=== PATIENT | female | born 1950 | race Caucasian/White ===

== ENCOUNTER 2024-03-09 17:57 | Emergency (ER) | payer OTHER, SELFPAY ==
[2024-03-09] VITALS (7 sets, daily range): BP systolic 140–239; BP diastolic 76–124; PULSE 69–87; RESP 18–19; TEMP 36.7–36.8; O2SAT 97–99; BMI 35.4; BMI 23.9
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
--- NOTE | 2024-03-09 18:02 | XR_ITS ---
Examination: CT brain head without contrast. 2-D sagittal coronal reconstructions Date and time of exam:March 09, 2024 1721 hrs. Indications: Headaches beginning 2 days ago CTDI: vol (mGy):49 DLP: (mGycm):1001 Technique: Multiple CT axial sections of the brain have been obtained, 5 mm slice thickness. Contrast has not been administered. 2-D sagittal, coronal reconstructions have been obtained Low dose protocols were performed. One or more of the following dose reduction techniques were used; automated exposure control, adjustment of the mA and/or KV according to patient size, use of iterative reconstruction technique. Findings: No significant ventricular enlargement. Intra-axial or extra-axial hemorrhage density is not seen. No mass effect or midline shift Basal cisterns are not remarkable. Fourth ventricle is midline. Cranial vault intact. Impression: Negative for acute hemorrhage, mass effect or midline shift Advise clinical correlation and follow-up accordingly
--- NOTE | 2024-03-09 18:02 | XR_ITS ---
Examination: CT cervical spine without contrast 2-D sagittal reconstructions 2-D coronal reconstructions 3-D reconstructions. Exam date and time:March 09, 2024 1921 hrs. Indications: Patient fell 2 days ago with injury to the neck, neck pain CTDI:vol (mGy) 7.31 DLP: (mGycm) 141 Technique: Multiple 2 mm axial sections of the cervical spine have been obtained. The coronal and sagittal reconstructions have been obtained. 3-D reconstructions have been obtained. Low dose protocols were performed. One or more of the following dose reduction techniques were used; automated exposure control, adjustment of the mA and/or KV according to patient size, use of iterative reconstruction technique. Findings: Axial sections demonstrate intact base of the skull. C1 exhibit satisfactory relationship to the odontoid. No acute cervical vertebral body fracture seen. Alignment posterior spinous processes satisfactory. Impression: No acute cervical fracture.
--- NOTE | 2024-03-09 18:04 | PD.EDADULT ---
ED General RME/HPI General Chief complaint: Fall Stated complaint: FALL Time Seen by Provider: 03/09/24 18:02 Arrival date/time: 03/09/24 17:57 RME / HPI RME / HPI narrative: 73-year-old female patient came in for evaluation after a fall. Patient was walking and tripped on something and fell sustaining skin tear to the right forearm, severity moderate, and posterior neck pain. Patient denies any LOC. Denies any hip pain denies any chest pain back pain or other complaints. Patient is not taking a blood thinner. Related Data Home Medications ?Medication ?Instructions ?Recorded ?Confirmed Levothyroxine * (SYNTHROID *) 25 mcg PO QDAY #0 tabs 07/11/14 alprazolam 0.25 mg tablet 0.25 mg PO BID #0 tabs 07/11/14 lisinopril 5 mg tablet 5 mg PO QDAY #0 tabs 07/11/14 metformin 850 mg tablet 850 mg PO QDAC #0 tabs 07/11/14 (Glucophage) simvastatin 5 mg tablet (Zocor) 5 mg PO HS #0 tabs 07/11/14 triazolam 0.125 mg tablet 0.125 mg PO HS #0 tabs 07/11/14 Previous Rx's ?Medication ?Instructions ?Recorded Hydrocodone/Acetaminophen * (NORCO 1 tab PO Q6H PRN PAIN #14 tabs 07/11/14 5/325 *) Sulfamethoxazole/Trimethoprim DS * 1 tab PO BID 7 days #0 tabs 07/11/14 (BACTRIM DS *) tramadol 50 mg tablet 50 mg PO Q6H #30 tabs 04/18/18 Allergies Allergy/AdvReac Type Severity Reaction Status Date / Time No Known Allergies Allergy Unverified 04/18/18 13:18 Review of Systems Review of Systems Narrative Review of Systems: Review of system reviewed and within normal limits except mentioned in HPI ED Exam Narrative Physical exam: VITAL SIGNS: Reviewed. GENERAL APPEARANCE: Alert and interactive, follows commands, no acute distress, HEAD AND FACE: Non-traumatic. ENT: PERRL, pink conjunctivitis, eyelid no trauma, Mucous membrane moist. NECK: Supple, posterior neck tenderness, no nuchal rigidity. CHEST: No tenderness, no crepitus, no paradoxical movement, no retractions. LUNGS: Clear, well ventilated, symmetric, no rales, no wheezing, no ronchi, no stridor, good breath sounds bilaterally. HEART: Regular rate, regular rhythm, no murmur, no gallops. ABDOMEN: Soft, positive bowel sounds, nondistended, no guarding, nontender, no rebound, no masses, RECTAL: Deferred. GENITAL: Deferred. NEUROLOGICAL: Gross motor function intact sensory function intact, Appropriate for age. MUSCULOSKELETAL: low back nontender, full range of motion. EXTREMITIES: +5 cm skin tear to the right forearm, dorsal aspect with tenderness no deformity, full range of motion. SKIN: Color pink, dry, no rash, no lacerations, no abrasions, no contusions. LYMPHATICS: Deferred. Course Quality Measures none Orders Category Date Time Status CT cervical spine wo con Stat Exams 03/09/24 18:[address] head/brain wo con Stat Exams 03/09/24 18:02 Completed XR forearm RT 2V Stat Exams 03/09/24 18:02 Completed XR shoulder RT 1V Stat Exams 03/09/24 20:04 Completed Acetaminophen Tab [Tylenol ES Tab] Med 03/09/24 18:02 Discontinued 1,000 mg PO X1 ONE Labetalol IV [Trandate IV] Med 03/09/24 19:31 Discontinued 20 mg IVP X1 ONE Morphine Inj Med 03/09/24 19:31 Discontinued 4 mg IVP X1 ONE Ondansetron Inj [Zofran Inj] Med 03/09/24 19:31 Discontinued 4 mg IV X1 ONE Sodium Chloride 0.9% 250 ml [Ns] 250 ml Med 03/09/24 20:04 Discontinued IV 999 mls/hr Tet,Diphth,Pertuss(Acell)-Tdap [Boostrix Vacc] Med 03/09/24 18:02 Discontinued 0.5 ml IMI .ONCE ONE Vital Signs Vital signs: Vital Signs Pulse Rate 87 03/09/24 19:01 Respiratory Rate 18 03/09/24 19:01 Blood Pressure 239/124 H 03/09/24 19:01 Pulse Oximetry (%) 97 03/09/24 19:01 Oxygen Delivery Method Room Air 03/09/24 19:01 [facility] [place] Patient data External records reviewed:: None Clinical information provided by:: patient Social determinants that could affect healthcare access:: none Patient has the following chronic illnesses:: Dementia, hypertension How is presenting disease/condition affected by chronic disease/condition?: exacerbated by Evaluation data The following diagnostics were reviewed and interpreted by me:: radiology exam(s) Lab and/or radiology exams considered but not ordered:: None Interpretation Summary: X-ray of the forearm came back unremarkable x-ray of the shoulder came back unremarkable. CT scan of the cervical spine also came back unremarkable CT scan of the head also came back unremarkable results discussed with the family. Medications Medications considered but not ordered:: None Medication administrations:: Medication Administration History Discontinued Medications Acetaminophen (Acetaminophen 500 Mg Tablet) 1,000 mg PO X1 ONE Stop: 03/09/24 18:03 Last Admin: 03/09/24 19:48 Dose: Not Given Documented By: EE Non-Admin Reason: Discontinued Diphtheria/Tetanus/Acell Pertussis (Diphth,Pertuss(Acell),Tet Vac 0.5 Ml Vial) 0.5 ml IMi .ONCE ONE Stop: 03/09/24 18:03 Last Admin: 03/09/24 19:47 Dose: 0.5 ml Documented By: FLY Sodium Chloride (Ns) 250 mls @ 999 mls/hr IV .Q16M ONE Stop: 03/09/24 20:19 Labetalol HCl (Labetalol Inj 5 Mg/Ml Vial 20 Ml) 20 mg IVP X1 ONE Stop: 03/09/24 19:32 Last Admin: 03/09/24 19:46 Dose: 20 mg Documented By: EE Morphine Sulfate (Morphine Sulf Inj 10 Mg/Ml Vial) 4 mg IVP X1 ONE Stop: 03/09/24 19:32 Last Admin: 03/09/24 19:47 Dose: 4 mg Documented By: EE Ondansetron HCl (Ondansetron Inj 2 Mg/Ml Inj 2 Ml) 4 mg IV X1 ONE; Protocol Stop: 03/09/24 19:32 Last Admin: 03/09/24 19:58 Dose: 4 mg Documented By: EE Labetalol, Zofran, and morphine. Patient also received Boostrix Consultations Consultation(s) initiated? (list below): No Consultation #1 (Physician, Specialty, Details): None Diagnosis Differential Diagnosis ED Complaint MDM: Skin tear, fall, intracranial bleed, neck fracture Most likely diagnosis given after review of the tests above:: Forearm skin tear, fall Admission Indicated Admission indicated?: not indicated Explain why admission is indicated or not indicated:: Stable Admission Request Was there a request for admission?: No Disposition Plan Disposition Plan: Discharge Discharge Attestation Discharge Attestation: The patient and all family members were given an opportunity to ask questions and understood the discharge instructions. Discharge instructions specifically effects, indications for sooner follow up or return to the emergency department, and the expected course of current diagnosis. Patient condition: Stable Medical Decision Making MDM Narrative MDM Narrative: 73-year-old female patient came in for evaluation after a fall. Patient was walking and tripped on something and fell sustaining skin tear to the right forearm, severity moderate, and posterior neck pain. Patient denies any LOC. Denies any hip pain denies any chest pain back pain or other complaints. Patient is not taking a blood thinner. Skin tear cleaned with NS, and sterile strip applied by me, well approximation of the skin tear was achieved. Sterile dressing applied. CT scan of the head came back unremarkable CT scan of the neck came back unremarkable x-ray of the shoulder and forearm also came back normal. Patient received Tdap, morphine, and Zofran Differential Diagnosis Differential Diagnosis: Skin tear, fall, intracranial bleed, neck fracture Discharge Plan Plan Patient Disposition: HOME (Self Care) Disposition Comment: Stable Prescriptions/Referrals Prescriptions/Med Rec: No Action triazolam 0.125 MG tablet 0.125 mg PO HS Qty: 0 metformin [Glucophage] 850 MG tablet 850 mg PO QDAC Qty: 0 alprazolam 0.25 MG tablet 0.25 mg PO BID Qty: 0 simvastatin [Zocor] 5 MG tablet 5 mg PO HS Qty: 0 lisinopril 5 MG tablet 5 mg PO QDAY Qty: 0 Levothyroxine * (SYNTHROID *) 25 MCG tablet 25 mcg PO QDAY Qty: 0 Hydrocodone/Acetaminophen * (NORCO 5/325 *) 1 TAB tablet 1 tab PO Q6H PRN (Reason: PAIN) Qty: 14 0RF Sulfamethoxazole/Trimethoprim DS * (BACTRIM DS *) 1 TAB tablet 1 tab PO BID 7 Days Qty: 0 0RF tramadol 50 mg tablet 50 mg PO Q6H Qty: 30 0RF Referrals: Dante Brewster MD [Primary Care Provider] - In 1 week Problem List Clinical Impression: Skin tear of right forearm without complication, Fall Patient/Caregiver Discharge Instructions Discharge Activity: activity as tolerated Education Materials: ED Laceration: All Closures Additional Instructions: Thank you for the opportunity for serving you today. You are stable for discharged . You are advised to: Follow-up with your PCP in 1 to 2 days Return to ED for worsening of symptoms Increase oral fluids Do not remove the sterile strip until you follow-up at least 7 days, you can only change the top dressing only. As needed every 2 days You may give Tylenol as needed for pain Print Language: Khmer Stand Alone Forms: Varsha Award Info., Patient Portal Info Letter PA/ERIC Supervising Physician PA/ERIC Supervising Physician: MD snehal
--- NOTE | 2024-03-09 19:30 | PC.NURSE ---
PROVIDER ROMEO INFORMED OF PT'S BP 239/124 HR:87. NEW ORDERS RECEIVED.
[2024-03-09] MEDS: LABETALOL INJ 5 MG/ML VIAL 20 ML 20 MG IVP (19:46)
[2024-03-09] MEDS: DIPHTH,PERTUSS(ACELL),TET VAC 0.5 ML VIAL IMi (19:47)
[2024-03-09] MEDS: MORPHINE SULF INJ 10 MG/ML VIAL 4 MG IVP (19:47)
[2024-03-09] MEDS: ONDANSETRON INJ 2 MG/ML INJ 2 ML 4 MG IV (19:58)
--- NOTE | 2024-03-09 20:04 | XR_ITS ---
Examination: Right shoulder single view Technique: AP internal rotation right shoulder single view Exam date and time: March 09, 20242024 hrs. Indications: Onset right shoulder pain today. Findings: Significant osteopenia Moderate narrowing glenohumeral joint No AC joint separation The osseous structures are intact Impression: Moderate narrowing glenohumeral joint
== END 2024-03-09 22:48 | disposition home or self-care (01) ==
PROVIDERS: Emergency Provider Emergency Medicine; PCP Family Medicine
DX: S51.811A Laceration without foreign body of right forearm, initial encounter (principal); W18.09XA Striking against other object with subsequent fall, initial encounter; S49.91XA Unspecified injury of right shoulder and upper arm, initial encounter; S09.90XA Unspecified injury of head, initial encounter; S19.9XXA Unspecified injury of neck, initial encounter; Z23 Encounter for immunization; Y93.01 Activity, walking, marching and hiking
CPT/HCPCS: 70450; 72125; 73020; 73090; 90471; 90715; 96374; 96375; 99284; J2270; J2405; J3490; J1920

== ENCOUNTER → 2024-08-23 | Outpatient (CLI) | payer OTHER, SELFPAY ==
[2024-08-23 13:34] LABS: Collection Type, Urine Clean Catch
[2024-08-23 13:45] LABS: Basophils # (Auto) 0.1 Thou/mm3 (0.0-0.2); Basophils % (Auto) 1 % (0-2.5); Eosinophils # (Auto) 0.2 Thou/mm3 (0.0-0.5); Eosinophils % (Auto) 2 % (0-10); Hematocrit 41.6 % (36.0-46.0); Hemoglobin 13.4 g/dL (12.0-16.0); Immature Granulocytes % (Auto) 0 % (0-0); Immature Granulocytes Auto 0.03 Thou/mm3 (0.00-0.00); Lymphocytes # (Auto) 1.7 Thou/mm3 (1.0-4.8); Lymphocytes % (Auto) 22 % (10-50); Mean Corpuscular HGB Conc 32.2 g/dl (31.0-37.0); Mean Corpuscular Hemoglobin 28.5 pg (25.0-35.0); Mean Corpuscular Volume 88 fL (80-100); Monocytes # (Auto) 0.6 Thou/mm3 (0.0-0.8); Monocytes % (Auto) 7 % (0-12); Neutrophils # (Auto) 5.4 Thou/mm3 (1.8-7.7); Neutrophils % (Auto) 67 % (37-80); Nucleated Red Blood Cell % 0 /100 WBC (0); Platelet Count 343 Thou/mm3 (140-440); RDW Standard Deviation 43.8 fL (36.4-46.3); Red Blood Count 4.71 Miln/mm3 (4.00-5.20)
[2024-08-23 13:47] LABS: Bilirubin,Urine Negative (Negative); Blood,Urine Negative (Negative); Clarity,Urine Clear (Clear/Hazy); Color,Urine Lt-Yellow (Lt Yel-Yel); Culture Indicated,Urine Not Indicated; Glucose, Urine Negative (Negative); Ketones,Urine Trace (Negative); Leukocyte Esterase,Urine Negative (Negative); Nitrite,Urine Negative (Negative); PH,Urine 6.5 (5.0-7.0); Protein,Urine Trace (Neg - Trace); RBC,Urine 5 /hpf (0-3); Specific Gravity,Urine 1.019 (1.001-1.035); Squamous Epithelial Cell,Urine 2 /hpf (0-5); Urobilinogen,Urine Negative mg/dL (0.0-1.0); WBC,Urine 2 /hpf (0-5)
[2024-08-23 13:55] LABS: Glucose Estimated Average 108 mg/dL (80-131); Hemoglobin A1C 5.4 % Hgb (4.8-6.0)
[2024-08-23 14:14] LABS: Alanine Aminotransferase 12 U/L (10-49); Albumin, Serum 4.3 gm/dL (3.4-4.8); Albumin/Globulin Ratio 1.7 (1.2-2.2); Alkaline Phosphatase 118 U/L (46-116); Anion Gap 9 (7-16); BUN/Creatinine Ratio 11 Ratio (12-20); Bilirubin,Total 0.5 mg/dL (0.3-1.2); Blood Urea Nitrogen 13 mg/dL (9-23); Calcium 9.3 mg/dL (8.3-10.6); Calcium (Corrected) 9.3 mg/dL (8.5-10.1); Carbon Dioxide 28.6 mMol/L (20.0-31.0); Chloride 108 mMol/L (98-107); Creatinine (Component) 1.2 mg/dL (0.6-1.3); Globulin 2.5 gm/dL (2.3-3.5); Glucose 91 mg/dL (74-106); Osmolality,Calculated 290 (275-295); Potassium 3.8 mMol/L (3.4-5.1); Sodium 146 mMol/L (136-145); Thyroid Stimulating Hormone 0.65 uIU/mL (0.55-4.78); Total Protein 6.8 gm/dL (5.7-8.2); eGFR 48 See Note
[2024-08-23 14:16] LABS: Vitamin B12 532 pg/mL (211-911); Vitamin D 25 Hydroxy Total 33.8 ng/mL (7.3-40.2)
== END | disposition home or self-care (01) ==
PROVIDERS: PCP Internal Medicine; Referring Provider Internal Medicine; Visit Provider Internal Medicine
DX: I12.9 Hypertensive chronic kidney disease with stage 1 through stage 4 chronic kidney disease, or unspecified chronic kidney disease (principal); N18.9 Chronic kidney disease, unspecified; G31.84 Mild cognitive impairment of uncertain or unknown etiology; E78.5 Hyperlipidemia, unspecified; M85.80 Other specified disorders of bone density and structure, unspecified site
CPT/HCPCS: 36415; 80053; 81001; 82306; 82607; 83036; 84443; 85025

== ENCOUNTER → 2024-10-12 | Outpatient (CLI) | payer OTHER, SELFPAY ==
--- NOTE | 2024-10-12 | XR_ITS ---
Examination: MRI brain without intravenous contrast. Date and time of exam: October 12, 2024 1051 hours INDICATIONS: Dizziness episodes with increasing memory loss over the last year Technique: Multiple axial and sagittal images of the brain obtained. Siemens high-resolution 1.5 Georgie short bore scanners utilized. Sagittal sections, T1-weighted, TR 500, TE 14, are performed. Axial sections proton-density and T2-weighted have been obtained. Inversion recovery axial images, TR 9, 260, TE 111, TI 2500. Diffusion weighted images, axial sections, TR 4800, TE 128, B value 1000 Axial sections, ADC map, TR 4800, TE 128 Findings: Enlargement of the sella turcica is not present. The optic chiasm and infundibular are not remarkable. Prepontine and interpeduncular cisterns are not enlarged. There is no localized enlargement of the medulla or katy. Fourth ventricle and cerebellar tonsils appear normal in position. No subacute area of hemorrhage density is seen. Mass in the cerebellopontine angle region is not evident. Globes symmetrical. Orbital musculature including medial lateral rectus muscles do not exhibit abnormality. Diffusion-weighted images demonstrate no focus of restricted diffusion. Increased white matter signal prominent Mass effect upon the ventricular system is not identified. Impression: Negative for acute hemorrhage mass effect or midline shift No acute infarct Prominent chronic microvascular white matter change
== END | disposition home or self-care (01) ==
LOC: SMRI 10:24
PROVIDERS: PCP Internal Medicine; Referring Provider Internal Medicine; Visit Provider Internal Medicine
DX: R90.82 White matter disease, unspecified (principal)
CPT/HCPCS: 70551

== ENCOUNTER → 2024-10-20 | Outpatient (CLI) | payer OTHER, SELFPAY ==
[2024-10-20 12:04] LABS: Basophils # (Auto) 0.1 Thou/mm3 (0.0-0.2); Basophils % (Auto) 1 % (0-2.5); Eosinophils # (Auto) 0.3 Thou/mm3 (0.0-0.5); Eosinophils % (Auto) 5 % (0-10); Hematocrit 41.9 % (36.0-46.0); Hemoglobin 13.0 g/dL (12.0-16.0); Immature Granulocytes Auto 0.02 Thou/mm3 (0.00-0.00); Lymphocytes # (Auto) 1.5 Thou/mm3 (1.0-4.8); Lymphocytes % (Auto) 22 % (10-50); Mean Corpuscular HGB Conc 31.0 g/dl (31.0-37.0); Mean Corpuscular Hemoglobin 28.4 pg (25.0-35.0); Mean Corpuscular Volume 92 fL (80-100); Monocytes # (Auto) 0.5 Thou/mm3 (0.0-0.8); Monocytes % (Auto) 8 % (0-12); Neutrophils # (Auto) 4.5 Thou/mm3 (1.8-7.7); Neutrophils % (Auto) 64 % (37-80); Nucleated Red Blood Cell # 0.00 Thou/mm3 (0.00-0.00); Nucleated Red Blood Cell % 0 /100 WBC (0); Platelet Count 341 Thou/mm3 (140-440); RDW Standard Deviation 47.3 fL (36.4-46.3); Red Blood Count 4.58 Miln/mm3 (4.00-5.20); White Blood Count 6.9 Thou/mm3 (3.6-11.0)
[2024-10-20 12:21] LABS: B-Type Natriuretic Peptide 155 pg/mL (0-100)
[2024-10-20 12:23] LABS: Alanine Aminotransferase 10 U/L (10-49); Albumin, Serum 4.2 gm/dL (3.4-4.8); Albumin/Globulin Ratio 1.8 (1.2-2.2); Alkaline Phosphatase 122 U/L (46-116); Anion Gap 9 (7-16); Aspartate Amino Transferase 24 U/L (0-34); BUN/Creatinine Ratio 15 Ratio (12-20); Bilirubin,Total 0.3 mg/dL (0.3-1.2); Blood Urea Nitrogen 21 mg/dL (9-23); Calcium 9.4 mg/dL (8.3-10.6); Calcium (Corrected) 9.4 mg/dL (8.5-10.1); Carbon Dioxide 29.3 mMol/L (20.0-31.0); Chloride 106 mMol/L (98-107); Creatinine (Component) 1.4 mg/dL (0.6-1.3); Globulin 2.3 gm/dL (2.3-3.5); Glucose 158 mg/dL (74-106); Osmolality,Calculated 292 (275-295); Potassium 4.5 mMol/L (3.4-5.1); Sodium 144 mMol/L (136-145); Total Protein 6.5 gm/dL (5.7-8.2); eGFR 39 See Note
== END | disposition home or self-care (01) ==
LOC: COPL 11:28
PROVIDERS: PCP Internal Medicine; Referring Provider Internal Medicine; Visit Provider Internal Medicine
DX: R60.9 Edema, unspecified (principal); N18.31 Chronic kidney disease, stage 3a
CPT/HCPCS: 36415; 80053; 83880; 85025

== ENCOUNTER 2024-10-31 18:22 | Emergency (ER) | payer OTHER, SELFPAY ==
[2024-10-31 18:52] VITALS: BP 159/83; PULSE 63; RESP 18; TEMP 36.8; O2SAT 97; BMI 32.3
--- NOTE | 2024-10-31 19:02 | EKG_ITS ---
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
--- NOTE | 2024-10-31 19:02 | XR_ITS ---
Examination: CT cervical spine without contrast 2-D sagittal reconstructions 2-D coronal reconstructions 3-D reconstructions. Exam date and time:October 31, 2024 1921 hours INDICATIONS: Ground-level fall today with injury to the neck neck pain CTDI:vol (mGy) 14 DLP: (mGycm) 307 Technique: Multiple 2 mm axial sections of the cervical spine have been obtained. The coronal and sagittal reconstructions have been obtained. 3-D reconstructions have been obtained. Low dose protocols were performed. One or more of the following dose reduction techniques were used; automated exposure control, adjustment of the mA and/or KV according to patient size, use of iterative reconstruction technique. Findings: Axial sections demonstrate intact base of the skull. C1 exhibit satisfactory relationship to the odontoid. No acute cervical vertebral body fracture seen. Alignment posterior spinous processes satisfactory. Chronic osteoporotic compression T5 Impression: No acute cervical fracture. Very heavy carotid vascular calcification, consider correlation with carotid Doppler sonography follow-up
--- NOTE | 2024-10-31 19:02 | XR_ITS ---
Examination: CT maxillofacial, without intravenous contrast. 2-D sagittal reconstructions. 3-D reconstructions. Date and time of exam:October 31, 2024 1921 hours INDICATIONS: Patient fell today with injury to the face, facial pain. CTDI: vol (mGy):17.7. DLP: (mGycm):323. Technique: Multiple axial images of maxillofacial region, 3.0 mm slice thickness. 2-D sagittal and coronal reconstructions. 3-D reconstructions. Low dose protocols were performed. One or more of the following dose reduction techniques were used; automated exposure control, adjustment of the mA and/or KV according to patient size, use of iterative reconstruction technique. Findings: Frontal bone frontal sinuses intact Orbital rims intact. No nasal bone fracture. No depression zygomatic arches. Pterygoid plates maxilla and mandible is intact IMPRESSION: No acute facial fracture.
--- NOTE | 2024-10-31 19:02 | XR_ITS ---
Examination: Tibia-Fibula, right , 2 views Technique: Tibia-fibula AP lateral 2 views Date and time of exam: October 31, 2024, 1959 hours. INDICATIONS: Patient fell today with injury to the lower leg, lower leg pain. FINDINGS: No acute fracture. No dislocation. No foreign body Poor definition of the cortex medial malleolus IMPRESSION: No acute fracture. There is poor definition of the cortex of the medial malleolus, clinical correlation is advised, consider follow-up coned ankle films
--- NOTE | 2024-10-31 19:02 | XR_ITS ---
Examination: Duplex scan of the lower extremity, unilateral right Date and time of exam: October 31, 2024 202 hours INDICATIONS: Right leg redness swelling and pain today Technique: Duplex scan of the extremity veins using B-mode/grayscale imaging and Doppler spectral analysis and color flow Attention is directed to internal echogenicity, compression and augmentation involving these veins, color flow assessment, spectral analysis Findings: Major deep venous structures in the extremity demonstrate normal course and caliber. There is no evidence of deep vein thrombosis. Noncompressible distal superficial femoral vein but no thrombus Normal color flow and spectral analysis Impression: Limited study, no DVT demonstrated
--- NOTE | 2024-10-31 19:02 | XR_ITS ---
Examination: CT right knee, without contrast. 2-D sagittal reconstructions. 2-D coronal reconstructions. 3-D reconstructions. Date and time of exam:October 31, 2024, 1927 hours. INDICATIONS: Injury to the knee today after falling, knee pain CTDI: vol (mGy):14.8 DLP: (mGycm):428 Technique: Multiple 1.25 mm axial sections of the left knee without intravenous contrast. have been obtained. 2-D sagittal and coronal reconstructions have been obtained. 3-D reconstructions have been obtained. Low dose protocols were performed. One or more of the following dose reduction techniques were used; automated exposure control, adjustment of the mA and/or KV according to patient size, use of iterative reconstruction technique. Findings: Severe osteopenia. Distal femur femoral condyles intact Advanced osteoarthritis patellofemoral joint Patella is intact with no patellar dislocation Tibial plateau proximal tibia fibular head and neck intact Severe narrowing medial joint space Edema in the subcutaneous tissue Small knee effusion IMPRESSION: No acute fracture Significant leg edema
--- NOTE | 2024-10-31 19:02 | XR_ITS ---
Examination: Forearm, left, 2 views. Technique: Forearm, AP, lateral 2 views Date and time of exam: October 31, 2024, 1947 hours INDICATIONS: Patient fell yesterday with injury deformed, forearm pain. FINDINGS: No acute fracture. No dislocation No foreign body IMPRESSION: No acute fracture
--- NOTE | 2024-10-31 19:02 | XR_ITS ---
Examination: Humerus 2 views right Technique: Humerus, AP lateral 2 views Date and time of exam: October 31, 2024, 1947 hours INDICATIONS: Patient fell yesterday with injury to the arm, arm pain. FINDINGS: No shoulder fracture or dislocation. Shaft of the humerus is intact IMPRESSION: No fracture
--- NOTE | 2024-10-31 19:02 | XR_ITS ---
Examination: CT brain head without contrast. 2-D sagittal coronal reconstructions Date and time of exam:October 31, 2024, 1921 hours INDICATIONS: Ground-level fall today with injury to the head, head pain COMPARISON: March 09, 2024 CTDI: vol (mGy):46.4 DLP: (mGycm):958 Technique: Multiple CT axial sections of the brain have been obtained, 5 mm slice thickness. Contrast has not been administered. 2-D sagittal, coronal reconstructions have been obtained Low dose protocols were performed. One or more of the following dose reduction techniques were used; automated exposure control, adjustment of the mA and/or KV according to patient size, use of iterative reconstruction technique. Findings: No significant ventricular enlargement. Intra-axial or extra-axial hemorrhage density is not seen. No mass effect or midline shift Basal cisterns are not remarkable. Fourth ventricle is midline. Cranial vault intact. Impression: Negative for acute hemorrhage, mass effect or midline shift
--- NOTE | 2024-10-31 19:05 | XR_ITS ---
Examination going to be just single view TECHNIQUE: Upright AP chest single view Date and time: October 31, 2024, 1950 hours INDICATIONS: Patient fell yesterday with injury to the chest, chest pain. FINDINGS: Mild prominence left ventricle. No pneumothorax. Old upper left rib fractures. No acute fractures depicted IMPRESSION: No pneumothorax pulmonary contusion or hemothorax
--- NOTE | 2024-10-31 19:46 | PD.EDFALL ---
ED Fall Injury RME/HPI General Chief Complaint: Fall Stated Complaint: Fall, right leg swollen Time Seen by Provider: 10/31/24 19:01 Arrival date/time: 10/31/24 18:22 74F with history of HTN, CKD and likely dementia presents to ED with daughter for 2 unwitnessed falls at residential. Unknown cause. Patient had some bleeding on L forearm and nose that were bandaged. Patient has not had a tetanus shot in the past 5 years. Patient complains of LUE and RLE pain/swelling. Unknown LOC. Patient/daughter deny LOC, AMS, seizures, N/V, and SOB. Patient was given Keflex for possible cellulitis in RLE w/o improvement. Limitations: no limitations Related Data Home Medications ?Medication ?Instructions ?Recorded ?Confirmed Levothyroxine * (SYNTHROID *) 25 mcg PO QDAY #0 tabs 07/11/14 alprazolam 0.25 mg tablet 0.25 mg PO BID #0 tabs 07/11/14 lisinopril 5 mg tablet 5 mg PO QDAY #0 tabs 07/11/14 metformin 850 mg tablet 850 mg PO QDAC #0 tabs 07/11/14 (Glucophage) simvastatin 5 mg tablet (Zocor) 5 mg PO HS #0 tabs 07/11/14 triazolam 0.125 mg tablet 0.125 mg PO HS #0 tabs 07/11/14 Previous Rx's ?Medication ?Instructions ?Recorded Hydrocodone/Acetaminophen * (NORCO 1 tab PO Q6H PRN PAIN #14 tabs 07/11/14 5/325 *) Sulfamethoxazole/Trimethoprim DS * 1 tab PO BID 7 days #0 tabs 07/11/14 (BACTRIM DS *) tramadol 50 mg tablet 50 mg PO Q6H #30 tabs 04/18/18 Allergies Allergy/AdvReac Type Severity Reaction Status Date / Time No Known Allergies Allergy Unverified 04/18/18 13:18 Review of Systems Review of Systems Systems Reviewed: All systems reviewed, normal except as documented Constitutional Constitutional: Reports system reviewed and no additional complaints, except as documented, Denies fever(s) and Denies headache(s) ENT Ears, Nose, Mouth, and Throat: Denies disequilibrium and Denies headache(s) Cardiovascular Cardiovascular: Reports system reviewed and no additional complaints, except as documented, Denies chest pain and Denies dyspnea Respiratory Respiratory: Reports system reviewed and no additional complaints, except as documented, Denies cough and Denies dyspnea Gastrointestinal Gastrointestinal: Reports system reviewed and no additional complaints, except as documented, Denies abdominal pain, Denies nausea and Denies vomiting Musculoskeletal Musculoskeletal: Reports as per HPI and Reports arthralgias Integumentary/Breasts Skin/Breast: Reports as per HPI and Reports skin pain Neurologic Neurologic: Reports system reviewed and no additional complaints, except as documented, Denies confusion, Denies disequilibrium and Denies headache(s) Psychiatric Psychiatric: Denies confusion Past Medical History Past Medical History CARDIAC: Positive Hypertension; Negative Congestive Heart Failure RESPIRATORY: Negative Chronic Obstructive Pulmonary Disease (COPD) GENITOURINARY: Negative Renal Disease MUSCULOSKELETAL: Positive Arthritis ENDOCRINE: Negative Diabetes Mellitus Type 1 or Diabetes Mellitus Type 2 OTHER HISTORY: Positive Blood Transfusions Social History SMOKING STATUS: Never smoker ED Exam General Limitations: Present no limitations General appearance: Present alert and in no apparent distress Expanded Head Exam Head exam physical: Present laceration (healing on nose) Eye Eye exam: Present normal appearance, PERRL and EOMI ENT ENT exam: Present normal exam, normal oropharynx and mucous membranes moist Neck Neck exam: Present normal inspection, full ROM and trachea midline Chest Chest inspection: Present normal inspection and symmetric chest wall rise Respiratory Respiratory exam: Present normal lung sounds bilaterally Cardiovascular Cardiovascular exam: Present regular rate, normal rhythm and normal heart sounds Abdominal Exam Abdominal exam: Present soft and normal bowel sounds Extremities Exam Extremities exam: Present full ROM Expanded Upper Extremity Exam Arm exam: Present full ROM (L), tenderness and ecchymosis Forearm/Wrist exam: Present full ROM, tenderness, abrasion (healing on L) and ecchymosis Expanded Lower Extremity Exam Lower leg exam: Present full ROM (R) and swelling Back Exam Back exam: Present normal inspection and full ROM Neurological Exam Neurological exam: Present alert, oriented X3 and CN II-XII intact Psychiatric Psychiatric exam: Present normal affect and normal mood Skin Skin exam: Present warm, dry, intact and normal color Course Quality Measures none Orders Category Date Time Status EKG (ED ONLY) *Do not use* NOW Care 10/31/24 19:02 Completed Wound Care NOW Care 10/31/24 19:46 Active braxton wrap [Splint / Immobilizer] STAT Care 10/31/24 22:[address] cervical spine wo con Stat Exams 10/31/24 19:[address] facial bones wo con Stat Exams 10/31/24 19:[address] head/brain wo con Stat Exams 10/31/24 19:[address] knee RT wo con Stat Exams 10/31/24 19:02 Completed EKG (ED Only) Stat Exams 10/31/24 19:02 Draft US venous doppler LE RT Stat Exams 10/31/24 19:02 Completed XR chest 1V portable Stat Exams 10/31/24 19:05 Completed XR forearm LT 2V Stat Exams 10/31/24 19:02 Completed XR humerus RT min 2V Stat Exams 10/31/24 19:02 Completed XR tibia fibula RT 2V Stat Exams 10/31/24 19:02 Completed CBC Stat Lab 10/31/24 19:48 Completed CMP [Comprehensive Metabolic Panel] Stat Lab 10/31/24 19:48 Completed INR [Prothrombin Time with INR] Stat Lab 10/31/24 19:48 Completed PTT [Partial Thromboplastin Time] Stat Lab 10/31/24 19:48 Completed Troponin I Stat Lab 10/31/24 19:48 Completed Urinalysis, C/S if Indicated Stat Lab 10/31/24 20:27 Completed TET,DIP/PERT AC (Adult)-Tdap [Boostrix Adult (Tdap) Med 10/31/24 19:46 Discontinued Vacc] 0.5 ml IMI .ONCE ONE Vital Signs Vital signs: Vital Signs Temperature 98.2 F 10/31/24 18:52 Pulse Rate 63 10/31/24 18:52 Respiratory Rate 18 10/31/24 18:52 Blood Pressure 159/83 H 10/31/24 18:52 Pulse Oximetry (%) 97 10/31/24 18:52 Oxygen Delivery Method Room Air 10/31/24 18:52 O2 at 97% on RA and WNLs Fall MDM Narrative MDM Narrative:: 74F with history of HTN, CKD and likely dementia presents to ED with daughter for 2 unwitnessed falls at residential. Unknown cause. Patient had some bleeding on L forearm and nose that were bandaged. Patient has not had a tetanus shot in the past 5 years. Patient complains of LUE and RLE pain/swelling. Unknown LOC. Patient/daughter deny LOC, AMS, seizures, N/V, and SOB. Patient was given Keflex for possible cellulitis in RLE w/o improvement. Physical exam reveals normal pupil response and EOM. Healing lac on nose. No other gross head trauma. Neck/back ROM intact. No midline tenderness. Normal WOB. No chest/ab tenderness. Patient is able to move all 4 extremities. RLE swelling, but no tenderness or redness. Some bruising on L upper and and forearm. Healing skin abrasions on L forearm. EKG is NSR. Wound cleaned/irrigated and bandaged. Tdap given. CT unremarkable except for non-specific leg swelling. US also no DVT. XRs unremarkable. No leukocytosis or anemia. CMP unremarkable. Trop normal. Coags normal. UA clean. 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 Patient data External records reviewed:: [facility] previous records Clinical information provided by:: patient and family Social determinants that could affect healthcare access:: none Patient has the following chronic illnesses:: HTN, CKD, dementia How is presenting disease/condition affected by chronic disease/condition?: uneffected by Evaluation data The following diagnostics were reviewed and interpreted by me:: lab results, radiology exam(s) and EKG tracing(s) Lab and/or radiology exams considered but not ordered:: ordered Interpretation Summary: above Medications / Prescriptions Medications or Prescriptions considered but not ordered:: ordered Medication administrations:: Medication Administration History Discontinued Medications Diphtheria/Tetanus/Acell Pertussis (Diphth,Pertuss(Acell),Tet Vac 0.5 Ml Syr- Adult) 0.5 ml IMi .ONCE ONE Stop: 10/31/24 19:47 Last Admin: 10/31/24 20:44 Dose: 0.5 ml Documented By: EE above Consultations Consultation(s) initiated? (list below): No Diagnosis Fall Differential Diagnosis: syncope, dislocation of shoulder region, fracture of wrist, compression fracture, concussion with loss of consciousness, concussion without loss of consciousness and other (skin abrasion, soft tissue contusion, DVT, leg swelling) Most likely diagnosis given after review of the tests above:: contusion of soft tissue, leg swelling, and skin abrasion Admission Indicated Admission indicated?: not indicated Admission Request Was there a request for admission?: No Disposition Plan Disposition Plan: Discharge Discharge Attestation Discharge Attestation: The patient and all family members were given an opportunity to ask questions and understood the discharge instructions. Discharge instructions specifically effects, indications for sooner follow up or return to the emergency department, and the expected course of current diagnosis. Patient condition: Stable Discharge Plan Plan Patient Disposition: HOME (Self Care) Discharge Disposition comment: Stable Prescriptions/Referrals Prescriptions/Med Rec: No Action triazolam 0.125 MG tablet 0.125 mg PO HS Qty: 0 metformin [Glucophage] 850 MG tablet 850 mg PO QDAC Qty: 0 alprazolam 0.25 MG tablet 0.25 mg PO BID Qty: 0 simvastatin [Zocor] 5 MG tablet 5 mg PO HS Qty: 0 lisinopril 5 MG tablet 5 mg PO QDAY Qty: 0 Levothyroxine * (SYNTHROID *) 25 MCG tablet 25 mcg PO QDAY Qty: 0 Hydrocodone/Acetaminophen * (NORCO 5/325 *) 1 TAB tablet 1 tab PO Q6H PRN (Reason: PAIN) Qty: 14 0RF Sulfamethoxazole/Trimethoprim DS * (BACTRIM DS *) 1 TAB tablet 1 tab PO BID 7 Days Qty: 0 0RF tramadol 50 mg tablet 50 mg PO Q6H Qty: 30 0RF Referrals: Fabby Brewster MD [Primary Care Provider] - In 1 week Problem List Clinical Impression: Abrasion of skin, Leg swelling, Contusion of soft tissue Patient/Caregiver Discharge Instructions Education Materials: ED Abrasions, ED Soft Tissue Contusion, ED Leg Swelling in a Single Leg Additional Instructions: Please follow-up with PCP within 24-48 hours and return immediately if symptoms worsen. If problem persists, recommend outpatient PT and/or MRI follow-up. In the meantime, rest, use ice/heat, and/or compression. Print Language: Yi Stand Alone Forms: Patient Portal Info Letter MANJIT/ERIC Supervising Physician ALICE Supervising Physician: Dr. Ugalde
[2024-10-31 20:01] LABS: Basophils # (Auto) 0.1 Thou/mm3 (0.0-0.2); Basophils % (Auto) 1 % (0-2.5); Eosinophils # (Auto) 0.4 Thou/mm3 (0.0-0.5); Eosinophils % (Auto) 5 % (0-10); Hematocrit 42.6 % (36.0-46.0); Hemoglobin 13.5 g/dL (12.0-16.0); Immature Granulocytes Auto 0.02 Thou/mm3 (0.00-0.00); Lymphocytes # (Auto) 1.7 Thou/mm3 (1.0-4.8); Lymphocytes % (Auto) 24 % (10-50); Mean Corpuscular HGB Conc 31.7 g/dl (31.0-37.0); Mean Corpuscular Hemoglobin 28.1 pg (25.0-35.0); Mean Corpuscular Volume 89 fL (80-100); Monocytes # (Auto) 0.6 Thou/mm3 (0.0-0.8); Monocytes % (Auto) 9 % (0-12); Neutrophils # (Auto) 4.5 Thou/mm3 (1.8-7.7); Neutrophils % (Auto) 61 % (37-80); Nucleated Red Blood Cell # 0.00 Thou/mm3 (0.00-0.00); Nucleated Red Blood Cell % 0 /100 WBC (0); Platelet Count 307 Thou/mm3 (140-440); RDW Standard Deviation 45.1 fL (36.4-46.3); Red Blood Count 4.80 Miln/mm3 (4.00-5.20); White Blood Count 7.3 Thou/mm3 (3.6-11.0)
[2024-10-31 20:15] LABS: INR 1.0 (0.9-1.3); Partial Thromboplastin Time 28.1 Seconds (22.0-36.0); Prothrombin Time 10.7 Seconds (9.0-12.2)
[2024-10-31 20:23] LABS: Alanine Aminotransferase 16 U/L (10-49); Albumin, Serum 4.5 gm/dL (3.4-4.8); Albumin/Globulin Ratio 1.7 (1.2-2.2); Alkaline Phosphatase 134 U/L (46-116); Anion Gap 8 (7-16); Aspartate Amino Transferase 32 U/L (0-34); BUN/Creatinine Ratio 18 Ratio (12-20); Bilirubin,Total 0.3 mg/dL (0.3-1.2); Blood Urea Nitrogen 22 mg/dL (9-23); Calcium 10.0 mg/dL (8.3-10.6); Calcium (Corrected) 10.0 mg/dL (8.5-10.1); Carbon Dioxide 27.3 mMol/L (20.0-31.0); Chloride 106 mMol/L (98-107); Creatinine (Component) 1.2 mg/dL (0.6-1.3); Estimated Creatinine Clearance 45.1 mL/min (>60); Globulin 2.7 gm/dL (2.3-3.5); Glucose 99 mg/dL (74-106); Osmolality,Calculated 284 (275-295); Potassium 4.0 mMol/L (3.4-5.1); Sodium 141 mMol/L (136-145); Total Protein 7.2 gm/dL (5.7-8.2); Troponin I < 0.020 ng/mL (0.0-0.045); eGFR 48 See Note
[2024-10-31 20:44] LABS: Collection Type, Urine Clean Catch
[2024-10-31] MEDS: DIPHTH,PERTUSS(ACELL),TET VAC 0.5 ML SYR- ADULT IMi (20:44)
[2024-10-31 20:48] LABS: Bilirubin,Urine Negative (Negative); Blood,Urine Negative (Negative); Clarity,Urine Clear (Clear/Hazy); Color,Urine Lt-Yellow (Lt Yel-Yel); Culture Indicated,Urine Not Indicated; Glucose, Urine Negative (Negative); Ketones,Urine Negative (Negative); Leukocyte Esterase,Urine Positive (Negative); Nitrite,Urine Negative (Negative); PH,Urine 6.0 (5.0-7.0); Protein,Urine Trace (Neg - Trace); RBC,Urine 3 /hpf (0-3); Specific Gravity,Urine 1.020 (1.001-1.035); Squamous Epithelial Cell,Urine 2 /hpf (0-5); Urobilinogen,Urine Negative mg/dL (0.0-1.0); WBC,Urine 6 /hpf (0-5)
== END 2024-10-31 22:53 | disposition home or self-care (01) ==
PROVIDERS: Physician Assistant; Emergency Provider Emergency Medicine; PCP Family Medicine
DX: M79.89 Other specified soft tissue disorders (principal); S50.812A Abrasion of left forearm, initial encounter; S09.93XA Unspecified injury of face, initial encounter; S89.91XA Unspecified injury of right lower leg, initial encounter; S49.91XA Unspecified injury of right shoulder and upper arm, initial encounter; S29.9XXA Unspecified injury of thorax, initial encounter; W19.XXXA Unspecified fall, initial encounter; Y92.199 Unspecified place in other specified residential institution as the place of occurrence of the external cause; Z23 Encounter for immunization
CPT/HCPCS: 36415; 70450; 70486; 71045; 72125; 73060; 73090; 73590; 73700; 80053; 81001; 84484; 85025; 85610; 85730; 90471; 90715; 93005; 93971; 99284

== ENCOUNTER → 2024-11-03 | Outpatient (CLI) | payer OTHER, SELFPAY ==
--- NOTE | 2024-11-03 15:13 | XR_ITS ---
Examination: Carotid arterial duplex scan, ultrasound. Date and time of exam: November 03, 2024 1538 hours INDICATIONS: Dizziness episodes the last 3 weeks with frequent falling Technique: Multiple sonographic images have been obtained of the carotid arteries and vertebral arteries, B-mode/grayscale imaging and Doppler spectral analysis and color flow Peak systolic and diastolic velocities have been recorded. Systolic diastolic ratios have been calculated. Findings: Right peak systolic velocities: Distal internal carotid artery peak systolic velocity is 0.7 M/sec Proximal internal carotid artery peak systolic velocity is 0.5 M/sec Carotid bifurcation peak systolic velocity is 0.9 M/sec External carotid artery peak systolic velocity is 0.7 M/sec Vertebral artery flow is antegrade. Left peak systolic velocities: Distal internal carotid artery peak systolic velocity is 0.8 M/sec Proximal internal carotid artery peak systolic velocity is 0.6 M/sec Carotid bifurcation peak systolic velocity is 0.7 M/sec External carotid artery peak systolic velocity is 1.0 M/sec Vertebral artery flow is antegrade Doppler waveform analysis demonstrates no spectral broadening Impression: Right internal carotid artery demonstrates 0-10% stenosis. Left internal carotid artery demonstrates 0-10% stenosis.
[2024-11-03 16:35] LABS: Basophils # (Auto) 0.1 Thou/mm3 (0.0-0.2); Basophils % (Auto) 1 % (0-2.5); Eosinophils # (Auto) 0.3 Thou/mm3 (0.0-0.5); Eosinophils % (Auto) 4 % (0-10); Hematocrit 40.6 % (36.0-46.0); Hemoglobin 13.0 g/dL (12.0-16.0); Immature Granulocytes Auto 0.04 Thou/mm3 (0.00-0.00); Lymphocytes # (Auto) 1.6 Thou/mm3 (1.0-4.8); Lymphocytes % (Auto) 21 % (10-50); Mean Corpuscular HGB Conc 32.0 g/dl (31.0-37.0); Mean Corpuscular Hemoglobin 28.6 pg (25.0-35.0); Mean Corpuscular Volume 89 fL (80-100); Monocytes # (Auto) 0.8 Thou/mm3 (0.0-0.8); Monocytes % (Auto) 10 % (0-12); Neutrophils # (Auto) 4.9 Thou/mm3 (1.8-7.7); Neutrophils % (Auto) 64 % (37-80); Nucleated Red Blood Cell # 0.00 Thou/mm3 (0.00-0.00); Nucleated Red Blood Cell % 0 /100 WBC (0); Platelet Count 309 Thou/mm3 (140-440); RDW Standard Deviation 45.9 fL (36.4-46.3); Red Blood Count 4.54 Miln/mm3 (4.00-5.20); White Blood Count 7.6 Thou/mm3 (3.6-11.0)
[2024-11-03 16:53] LABS: Alanine Aminotransferase 13 U/L (10-49); Albumin, Serum 4.3 gm/dL (3.4-4.8); Albumin/Globulin Ratio 1.8 (1.2-2.2); Alkaline Phosphatase 128 U/L (46-116); Anion Gap 8 (7-16); Aspartate Amino Transferase 25 U/L (0-34); BUN/Creatinine Ratio 17 Ratio (12-20); Bilirubin,Total 0.3 mg/dL (0.3-1.2); Blood Urea Nitrogen 22 mg/dL (9-23); Calcium 10.7 mg/dL (8.3-10.6); Calcium (Corrected) 10.7 mg/dL (8.5-10.1); Carbon Dioxide 29.1 mMol/L (20.0-31.0); Chloride 108 mMol/L (98-107); Creatinine (Component) 1.3 mg/dL (0.6-1.3); Globulin 2.4 gm/dL (2.3-3.5); Glucose 104 mg/dL (74-106); Osmolality,Calculated 292 (275-295); Potassium 4.8 mMol/L (3.4-5.1); Sodium 145 mMol/L (136-145); Total Protein 6.7 gm/dL (5.7-8.2); eGFR 43 See Note
== END | disposition home or self-care (01) ==
LOC: COPL 15:08
PROVIDERS: PCP Internal Medicine; Referring Provider Internal Medicine; Visit Provider Internal Medicine
DX: N18.32 Chronic kidney disease, stage 3b (principal); F03.90 Unspecified dementia, unspecified severity, without behavioral disturbance, psychotic disturbance, mood disturbance, and anxiety; R60.9 Edema, unspecified; I65.29 Occlusion and stenosis of unspecified carotid artery; R26.9 Unspecified abnormalities of gait and mobility; R29.6 Repeated falls
CPT/HCPCS: 36415; 80053; 85025; 93880

== ENCOUNTER → 2025-01-16 | Outpatient (CLI) | payer OTHER, SELFPAY ==
--- NOTE | 2025-01-16 17:00 | XR_ITS ---
Examination: MRI right foot, without contrast Date and time of exam: January 16, 2025, 1822 hours INDICATION: Plantar foot pain beginning 3 weeks ago Technique: Multiple axial sagittal and coronal images of the right foot have been obtained with the Siemens high-resolution 1.5 Georgie MRI scanner. Images obtained include T2-weighted fat-suppressed sagittal sections, TR 3500, TE 46, T2 weighted coronal fat suppressed images, TR 3050, TE 84, T2-weighted transverse fat suppressed images, TR 3260, TE 63, proton density transverse images, TR 4720 TE 46, and T1 weighted coronal images, TR 560, TE 13. Findings: All of the images are severely degraded by patient motion Achilles tendon is thickened Moderate plantar fasciitis Bone detail is extremely poor IMPRESSION: All of the images are severely degraded by patient motion Consider shorter scan times CT foot without intravenous contrast follow-up
== END | disposition home or self-care (01) ==
LOC: SMRI 16:56
PROVIDERS: PCP Internal Medicine; Referring Provider Internal Medicine; Visit Provider Internal Medicine
DX: M79.671 Pain in right foot (principal)
CPT/HCPCS: 73718

== ENCOUNTER → 2025-01-26 | Outpatient (CLI) | payer OTHER, SELFPAY ==
[2025-01-26 11:01] LABS: Cardiac Risk Estimate 2.7 RATIO (3.7-5.6); Cholesterol 189 mg/dL (132-200); Free T4 (Free Thyroxine) 1.14 ng/dL (0.89-1.76); Glucose Estimated Average 126 mg/dL (80-131); HDL Cholesterol 69 mg/dL (40-60); Hemoglobin A1C 6.0 % Hgb (4.8-6.0); LDL Cholesterol,Calculated 103 mg/dL (0-130); Thyroid Stimulating Hormone 1.26 uIU/mL (0.55-4.78); Triglycerides 84 mg/dL (30-150)
== END | disposition home or self-care (01) ==
PROVIDERS: PCP Internal Medicine; Referring Provider Psychiatry & Neurology Neurology; Visit Provider Psychiatry & Neurology Neurology
DX: I10 Essential (primary) hypertension (principal); E78.5 Hyperlipidemia, unspecified; G31.84 Mild cognitive impairment of uncertain or unknown etiology
CPT/HCPCS: 36415; 80061; 83036; 84439; 84443

== ENCOUNTER 2025-02-02 15:48 | Inpatient (IN) | payer OTHER, MEDICARE, SELFPAY ==
[2025-02-02 16:30] VITALS: BP 198/84; RESP 16; TEMP 36.7; O2SAT 97
--- NOTE | 2025-02-02 16:33 | EKG_ITS ---
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
--- NOTE | 2025-02-02 16:33 | XR_ITS ---
EXAMINATION: PA chest single view TECHNIQUE: Upright PA chest single view Date and time: February 02, 2025, 1646 hours INDICATIONS: Fever edema chest pain 1 week. FINDINGS: Mild to moderate enlargement left ventricle Ectatic thoracic aorta. No pneumonia or pulmonary edema. Old upper left rib fracture IMPRESSION: Mild to moderate enlargement left ventricle No pneumonia or pulmonary edema
--- NOTE | 2025-02-02 16:33 | PD.EDRME ---
Rapid Medical Screening Exam RME Arrival date/time: 02/02/25 15:48 74-year-old female with a history of hypertension, type 2 diabetes, hyperlipidemia, presents to the emergency room with a chief complaint of bilateral lower extremity swelling x 1 week I have greeted and performed a focused initial assessment of this patient. A comprehensive ED assessment and evaluation of the patient, analysis of all test results, and completion of the medical decision making process will be conducted by additional ED providers. Chief Complaint: General Adult/Misc Complain Time Seen by Provider: 02/02/25 16:17 Exam: +3 pitting edema to the bilateral lower extremities Strong and regular rhythm S1 and S2 noted Clear bilateral lung sounds Clinical Impression: Chronic kidney disease/heart failure/
--- NOTE | 2025-02-02 16:43 | XR_ITS ---
Examination: Foot, right, 3 views Technique: AP, oblique, lateral views foot, 3 views Date and time of exam: February 02, 2025, 1648 hours INDICATIONS: Fever redness swelling and pain involving the foot this week. FINDINGS: Severe osteopenia 5 mm plantar bony calcaneal spur Soft tissue swelling dorsum of the foot No hubert cortical bone destruction, however suspicious for periosteal new bone along the fourth metatarsal IMPRESSION: Suspicious for periosteal new bone along the fourth metatarsal, early osteomyelitis Suggest repeat MRI foot without contrast follow-up
[2025-02-02 16:58] VITALS: BMI 37.5
[2025-02-02 17:27] LABS: Lactate (Lactic Acid) 1.4 mMol/L (0.4-2.0)
[2025-02-02 17:30] LABS: Basophils # (Auto) 0.0 Thou/mm3 (0.0-0.2); Basophils % (Auto) 0 % (0-2.5); Eosinophils # (Auto) 0.3 Thou/mm3 (0.0-0.5); Eosinophils % (Auto) 6 % (0-10); Hematocrit 38.5 % (36.0-46.0); Hemoglobin 12.3 g/dL (12.0-16.0); Immature Granulocytes Auto 0.02 Thou/mm3 (0.00-0.00); Lymphocytes # (Auto) 1.7 Thou/mm3 (1.0-4.8); Lymphocytes % (Auto) 33 % (10-50); Mean Corpuscular HGB Conc 31.9 g/dl (31.0-37.0); Mean Corpuscular Hemoglobin 28.5 pg (25.0-35.0); Mean Corpuscular Volume 89 fL (80-100); Monocytes # (Auto) 0.5 Thou/mm3 (0.0-0.8); Monocytes % (Auto) 10 % (0-12); Neutrophils # (Auto) 2.5 Thou/mm3 (1.8-7.7); Neutrophils % (Auto) 50 % (37-80); Nucleated Red Blood Cell # 0.00 Thou/mm3 (0.00-0.00); Nucleated Red Blood Cell % 0 /100 WBC (0); Platelet Count 290 Thou/mm3 (140-440); RDW Standard Deviation 45.9 fL (36.4-46.3); Red Blood Count 4.32 Miln/mm3 (4.00-5.20); White Blood Count 5.1 Thou/mm3 (3.6-11.0)
[2025-02-02 17:46] LABS: INR 0.9 (0.9-1.3); Partial Thromboplastin Time 29.5 Seconds (22.0-36.0); Prothrombin Time 10.1 Seconds (9.0-12.2)
[2025-02-02 17:52] LABS: B-Type Natriuretic Peptide 96 pg/mL (0-100)
[2025-02-02 17:53] LABS: Sed Rate (ESR) 52 mm/hr (0-30)
[2025-02-02 18:00] LABS: Alanine Aminotransferase 14 U/L (10-49); Albumin, Serum 4.2 gm/dL (3.4-4.8); Albumin/Globulin Ratio 1.8 (1.2-2.2); Alkaline Phosphatase 124 U/L (46-116); Anion Gap 8 (7-16); Aspartate Amino Transferase 34 U/L (0-34); BUN/Creatinine Ratio 16 Ratio (12-20); Bilirubin,Total 0.2 mg/dL (0.3-1.2); Blood Urea Nitrogen 16 mg/dL (9-23); C-Reactive Protein < 0.5 mg/dL (0.0-0.9); Calcium 9.1 mg/dL (8.3-10.6); Calcium (Corrected) 9.1 mg/dL (8.5-10.1); Carbon Dioxide 27.4 mMol/L (20.0-31.0); Chloride 110 mMol/L (98-107); Creatinine (Component) 1.0 mg/dL (0.6-1.3); Estimated Creatinine Clearance 54.5 mL/min (>60); Free T4 (Free Thyroxine) 1.23 ng/dL (0.89-1.76); Globulin 2.3 gm/dL (2.3-3.5); Glucose 102 mg/dL (74-106); Magnesium 2.2 mg/dL (1.6-2.6); Osmolality,Calculated 289 (275-295); Potassium 4.0 mMol/L (3.4-5.1); Procalcitonin < 0.04 ng/ml (0.0-0.49); Sodium 145 mMol/L (136-145); Thyroid Stimulating Hormone 1.65 uIU/mL (0.55-4.78); Total Protein 6.5 gm/dL (5.7-8.2); Troponin I < 0.020 ng/mL (0.0-0.045); eGFR 59 See Note
[2025-02-02 19:57] LABS: Collection Type, Urine Clean Catch
[2025-02-02 20:07] LABS: Bilirubin,Urine Negative (Negative); Blood,Urine Negative (Negative); Clarity,Urine Clear (Clear/Hazy); Color,Urine Lt-Yellow (Lt Yel-Yel); Glucose, Urine Negative (Negative); Ketones,Urine Negative (Negative); Leukocyte Esterase,Urine Positive (Negative); Nitrite,Urine Negative (Negative); PH,Urine 7.0 (5.0-7.0); Protein,Urine 1+ (Neg - Trace); RBC,Urine 8 /hpf (0-3); Specific Gravity,Urine 1.020 (1.001-1.035); Squamous Epithelial Cell,Urine 1 /hpf (0-5); Urobilinogen,Urine Negative mg/dL (0.0-1.0); WBC,Urine 13 /hpf (0-5)
[2025-02-02 20:13] VITALS: BP 235/94; BP 242/156; PULSE 74; RESP 22; TEMP 37.4; O2SAT 98
[2025-02-02 20:16] LABS: Culture Indicated,Urine Yes
[2025-02-02 21:31] VITALS: BP 169/80; BP 174/82; PULSE 74; RESP 20; TEMP 36.7; O2SAT 99
--- NOTE | 2025-02-02 22:13 | PD.EDEXREM ---
ED Extremity Problem RME/HPI General Chief complaint: General Adult/Misc Complain Stated complaint: EDEMA B/L LEGS, WND R HEEL Time Seen by Provider: 02/02/25 16:17 Arrival date/time: 02/02/25 15:48 RME / HPI RME / HPI Narrative: 02/02/25 15:48 74-year-old female with a history of hypertension, type 2 diabetes, hyperlipidemia, presents to the emergency room with a chief complaint of bilateral lower extremity swelling x 1 week I have greeted and performed a focused initial assessment of this patient. A comprehensive ED assessment and evaluation of the patient, analysis of all test results, and completion of the medical decision making process will be conducted by additional ED providers. DR. SINGH MAIN ED EVALUATION: Patient with Hx of Chronic Lymphedema involving BLE x 2-3 months duration with vascular procedure pending, s/p recent debridement of right foot plantar callus, presenting with intermittent fever and reported pain involving BLE, despite finished course of ABX for presumptive cellulitis 1 week [employer]. No vomiting, nausea, or diarrhea. PMH: Dementia, HTN, Arthritis, Negative for Type II DM PSH: Non-contributory Allergies: NKDA Social: Negative Exam: +3 pitting edema to the bilateral lower extremities Strong and regular rhythm S1 and S2 noted Clear bilateral lung sounds Impression: Chronic kidney disease/heart failure/ Related Data Home Medications ?Medication ?Instructions ?Recorded ?Confirmed Levothyroxine * (SYNTHROID *) 25 mcg PO QDAY #0 tabs 07/11/14 alprazolam 0.25 mg tablet 0.25 mg PO BID #0 tabs 07/11/14 lisinopril 5 mg tablet 5 mg PO QDAY #0 tabs 07/11/14 metformin 850 mg tablet 850 mg PO QDAC #0 tabs 07/11/14 (Glucophage) simvastatin 5 mg tablet (Zocor) 5 mg PO HS #0 tabs 07/11/14 triazolam 0.125 mg tablet 0.125 mg PO HS #0 tabs 07/11/14 Previous Rx's ?Medication ?Instructions ?Recorded Hydrocodone/Acetaminophen * (NORCO 1 tab PO Q6H PRN PAIN #14 tabs 07/11/14 5/325 *) Sulfamethoxazole/Trimethoprim DS * 1 tab PO BID 7 days #0 tabs 07/11/14 (BACTRIM DS *) tramadol 50 mg tablet 50 mg PO Q6H #30 tabs 04/18/18 Allergies Allergy/AdvReac Type Severity Reaction Status Date / Time No Known Allergies Allergy Unverified 02/02/25 15:52 Review of Systems Review of Systems Systems Reviewed: All systems reviewed, normal except as documented Past Medical History Past Medical History NEUROLOGIC: Positive Dementia CARDIAC: Positive Hypertension MUSCULOSKELETAL: Positive Arthritis OTHER HISTORY: Positive Blood Transfusions ED Exam Narrative Physical exam: GEN. APPEARANCE: The patient is alert awake oriented X-3 under no distress, lying down comfortably, does not look ill/toxic. Patient has good eye contact. Patient is cooperative. VITALS: All vitals were reviewed and the pulse ox is 99%, which is normal according to my interpretation HEENT: Normocephalic, atraumatic and nontender. Pupils are equal and reactive. Oral mucosa is moist. NECK: Supple, nontender, no meningismus, no JVD. There is no thyromegaly and no lymphadenopathy. CHEST: Nontender on palpation no deformity and no crepitus. CARDIOVASCULAR: Heart regular rhythm, no murmur or gallop rub or extra beats. LUNGS: Clear to auscultation bilaterally with symmetrical chest rise. No laboring tachypnea or wheezing. No intercostal subcostal retraction. No rales and no rhonchi. ABDOMEN: Soft, flat, nontender to palpation, no guarding or rebound tenderness. There are no abnormal masses palpated. No pulsatile masses or bruits. Active and normal bowel sounds. EXTREMITIES: BLE 3+ edema extending from ankles to the knees with overlying warmth, somewhat tense BL, Right foot plantar surface demonstrates area of ecchymosis surrounding previous surgical site which is mildly TTP, no ulcerations identified. SKIN: Warm and dry, no rashes noted. MUSCULOSKELETAL: No lumbar or midline bony tenderness. There is no CVA tenderness. No paraspinal muscle spasm or tenderness. NEURO: Cranial nerves II through XII grossly intact. There are no focal neurologic deficits noted. GCS is 15 PSYCHIATRIC: Patient is in normal mood and affect, cooperative. LYMPHATICS: No major lymphadenopathy noted. Course Quality Measures none Orders Category Date Time Status EKG (ED ONLY) *Do not use* NOW Care 02/02/25 16:33 Completed EKG (ED Only) Stat Exams 02/02/25 16:33 Draft US venous doppler LE BI Stat Exams 02/03/25 00:00 Taken XR chest 1V portable Stat Exams 02/02/25 16:33 Completed XR foot comp RT min 3V Stat Exams 02/02/25 16:43 Completed B-Type Natriuretic Peptide Stat Lab 02/02/25 17:15 Completed Blood Culture (Lab) Stat Lab 02/02/25 17:15 Received CBC Stat Lab 02/02/25 17:15 Completed CRP [C-Reactive Protein] Stat Lab 02/02/25 17:15 Completed Comprehensive Metabolic Panel Stat Lab 02/02/25 17:15 Completed ESR [Sed Rate (ESR)] Stat Lab 02/02/25 17:15 Completed Free T4 (Free Thyroxine) Stat Lab 02/02/25 17:15 Completed Lactate (Lactic Acid) Stat Lab 02/02/25 17:15 Completed Magnesium Stat Lab 02/02/25 17:15 Completed Partial Thromboplastin Time Stat Lab 02/02/25 17:15 Completed Procalcitonin Stat Lab 02/02/25 17:15 Completed Prothrombin Time with INR Stat Lab 02/02/25 17:15 Completed TSH [Thyroid Stimulating Hormone] Stat Lab 02/02/25 17:15 Completed Troponin I Stat Lab 02/02/25 17:15 Completed Urinalysis, C/S if Indicated Stat Lab 02/02/25 19:51 Completed Urine Culture Stat Lab 02/02/25 19:51 Received Piper/Tazo 3.375 gm Premix [Zosyn] Med 02/02/25 22:26 Discontinued 3.375 gm in 50 ml IV X1 Vancomycin Pharmacy to Dose Med 02/03/25 09:00 Pending 1 each IV QDAY Vancomycin/Ns 1 gm Ivpb 200 ml Med 02/02/25 22:45 Discontinued IV X1 hydrALAZINE INJ [Apresoline Inj] Med 02/02/25 21:01 Discontinued 10 mg IVP X1 ONE Vital Signs Vital signs: Vital Signs Temperature 98.1 F 02/02/25 16:30 Respiratory Rate 16 02/02/25 16:30 Blood Pressure 198/84 H 02/02/25 16:30 Pulse Oximetry (%) 97 02/02/25 16:30 Oxygen Delivery Method Room Air 02/02/25 16:30 Extremity Problem MDM Narrative MDM Narrative:: Scribe Attestation: I, Anika Lam, am scribing for and in the presence of Dr. Torres. Provider Notation: Although this document has been carefully reviewed, there may still be some phonetic and other typographical errors. These errors are purely grammatical due to imperfections in the software program and should not be construed in any way to compromise the substance of the patient's medical care during this visit. Patient with Hx of Chronic Lymphedema involving BLE x 2-3 months duration with vascular procedure pending, s/p recent debridement of right foot plantar callus, presenting with intermittent fever and reported pain involving BLE, despite finished course of ABX for presumptive cellulitis 1 week [employer]. No vomiting, nausea, or diarrhea. Please see PE findings. Laboratory markers demonstrate normal WBC, no left shift or bandemia. UA demonstrates pyuria. Doppler US BL currently pending. Foot x-rays demonstrate new periosteal bone formation suspicious for osteomyelitis. Will initiate ABX therapy and admit for MRI in the AM. Patient data External records reviewed:: [facility] previous records (Reviewed prior ED records from 10/31/24. Patient was seen for Abrasion of skin.) Clinical information provided by:: patient Social determinants that could affect healthcare access:: none Patient has the following chronic illnesses:: Dementia, HTN, Arthritis How is presenting disease/condition affected by chronic disease/condition?: exacerbated by Evaluation data The following diagnostics were reviewed and interpreted by me:: lab results, radiology exam(s) and EKG tracing(s) (EKG at 16:37 shows normal sinus rhythm at 68, normal axis, no ventricular ectopy, RBBB, per my interpretation.) Lab and/or radiology exams considered but not ordered:: None Interpretation Summary: RADIOLOGY Chest X-Ray: FINDINGS: Mild to moderate enlargement left ventricle Ectatic thoracic aorta. No pneumonia or pulmonary edema. Old upper left rib fracture IMPRESSION: Mild to moderate enlargement left ventricle No pneumonia or pulmonary edema Foot X-Ray: FINDINGS: Severe osteopenia 5 mm plantar bony calcaneal spur Soft tissue swelling dorsum of the foot No hubert cortical bone destruction, however suspicious for periosteal new bone along the fourth metatarsal IMPRESSION: Suspicious for periosteal new bone along the fourth metatarsal, early osteomyelitis Suggest repeat MRI foot without contrast follow-up Venous Doppler Study: Pending official radiology report. Medications / Prescriptions Medications or Prescriptions considered but not ordered:: None Medication administrations:: Medication Administration History Pharmacy Consult (Vancomycin Pharmacy To Dose 1 Each Each) 1 each IV QDAY YEYO Stop: 03/05/25 08:59 Discontinued Medications Hydralazine HCl (Hydralazine Inj 20 Mg/Ml Vial) 10 mg IVP X1 ONE Stop: 02/02/25 21:02 Last Admin: 02/02/25 22:17 Dose: Not Given Documented By: LIS Non-Admin Reason: Discontinued Piperacillin/Tazobactam/Dextrose (Zosyn) 3.375 gm in 50 mls @ 100 mls/hr IV X1 ONE; Protocol Stop: 02/02/25 22:55 Last Infusion: 02/02/25 23:45 Dose: Infused Documented By: Admin: 02/02/25 23:06 Dose: 100 mls/hr Documented By: LIS Vancomycin/Sodium Chloride (Vancomycin/Ns 1 Gm Ivpb) 200 mls @ 120 mls/hr IV X1 ONE Stop: 02/03/25 00:24 Last Infusion: 02/03/25 01:20 Dose: Infused Documented By: Admin: 02/02/25 23:39 Dose: 120 mls/hr Documented By: LIS See above if any Consultations Consultation(s) initiated? (list below): Yes Consultation #1 (Physician, Specialty, Details): Discussed with resident physician, Dr. Solomon, for admission. Reviewed the patient?s HPI, PMHx, lab and/or radiology results. Discussed treatment plan. Will consult an admission to the hospitalist. Time: 01:47 Diagnosis Extremity Problem Differential Diagnosis: cellulitis, superficial thrombophlebitis, lower extremity edema and deep vein thrombosis of lower extremity Most likely diagnosis given after review of the tests above:: Osteomyelitis of the right foot, Chronic BLE Lymphedema Admission Indicated Admission indicated?: indicated Explain why admission is indicated or not indicated:: Osteomyelitis/MRI in the AM Admission Request Was there a request for admission?: Yes Admission Attestation Admission request attestation: Discussed case with [] from Hospitalist service regarding admission. Discussed patients ED course, exam findings, labs, and radiology results. The Hospitalist [agrees,declines] to accept the patient for admission. Disposition Plan Disposition Plan: Admit Discharge Plan Plan Patient Disposition: Admit Acute Care w/in Hospital Prescriptions/Referrals Prescriptions/Med Rec: No Action triazolam 0.125 MG tablet 0.125 mg PO HS Qty: 0 metformin [Glucophage] 850 MG tablet 850 mg PO QDAC Qty: 0 alprazolam 0.25 MG tablet 0.25 mg PO BID Qty: 0 simvastatin [Zocor] 5 MG tablet 5 mg PO HS Qty: 0 lisinopril 5 MG tablet 5 mg PO QDAY Qty: 0 Levothyroxine * (SYNTHROID *) 25 MCG tablet 25 mcg PO QDAY Qty: 0 Hydrocodone/Acetaminophen * (NORCO 5/325 *) 1 TAB tablet 1 tab PO Q6H PRN (Reason: PAIN) Qty: 14 0RF Sulfamethoxazole/Trimethoprim DS * (BACTRIM DS *) 1 TAB tablet 1 tab PO BID 7 Days Qty: 0 0RF tramadol 50 mg tablet 50 mg PO Q6H Qty: 30 0RF Referrals: No Primary/Family,Physician [Primary Care Provider] - In 1 week Problem List Clinical Impression: Osteomyelitis of right foot, Lymphedema due to chronic inflammation Patient/Caregiver Discharge Instructions Print Language: Hungarian Stand Alone Forms: Varsha Award Info., Patient Portal Info Letter
[2025-02-02 22:17] VITALS: BP 174/82
--- NOTE | 2025-02-02 22:24 | PC.NURSE ---
Apon assessment Pt initial reported BP may br incorrect due to change of cuff si=ze and repositioning Pt BP is wnl and medication held MD aware
[2025-02-02] MEDS: PIPER/TAZO 3.375 GM PREMIX 3.375 GM/50 ML BAG IV (23:06)
[2025-02-02 23:24] VITALS: BP 191/83; PULSE 70; RESP 20; TEMP 36.6; O2SAT 97
[2025-02-02] MEDS: VANCOMYCIN/NS 1 GM IVPB 200 ML IV (23:39)
[2025-02-03] VITALS (10 sets, daily range): BP systolic 140–223; BP diastolic 57–99; PULSE 37–79; RESP 13–20; TEMP 36.3–37.2; O2SAT 95–99; BMI 36.4
--- NOTE | 2025-02-03 | XR_ITS ---
Examination: Venous duplex lower extremity sonogram, bilateral. Date and time of exam: February 03, 2025, 0041 hours INDICATIONS: Bilateral leg swelling and redness 2 months Technique: Multiple sonographic images of the deep venous system have been obtained. B-mode/2-D grayscale imaging of vascular structures and Doppler spectral analysis (waveforms) and color performed Both legs are examined. Findings: Deep venous systems do not demonstrate abnormal echogenicity. All visualized deep veins exhibit compressibility. All visualized deep veins exhibit augmentation. Impression: Negative for deep vein thrombosis
--- NOTE | 2025-02-03 00:33 | PC.NURSE ---
Pt turned and repositioned for comfort. Pt needs to urinate Placed Pt on purwic, tolorated well
--- NOTE | 2025-02-03 02:07 | PRELIM_ITS ---
Bilateral lower extremity venous Doppler ultrasound. February 03, 2025 0041 hours Clinical history: Rule out DVT Technique: Duplex scan of the bilateral lower extremity deep venous systems was performed utilizing 2D grayscale imaging, Doppler spectral analysis and color flow Doppler and with compression. Comparison: None Findings: Larry scale, color flow and spectral Doppler evaluation of the bilateral lower extremity deep veins were performed. The greater saphenous vein confluence, common femoral, femoral, popliteal veins are patent and compressible. The visualization of the calf veins is limited by edema. Normal respiratory variation is noted. There is no evidence of occlusive or nonocclusive thrombus. No fluid collection is demonstrated on the submitted images. Impression: No sonographic evidence of deep venous thrombosis in the bilateral lower extremities. Limited evaluation of the bilateral calves secondary to edema. Report Electronically Signed By: Leeroy Albrecht 02/03/2025 2:07:02 AM [EST]
--- NOTE | 2025-02-03 02:51 | ESHP_ITS ---
Documentation for date of: 02/03/25 [facility] History of Present Illness Chief complaint: cellulitis History of present illness: 74-year-old female past medical history of hypertension, hyperlipidemia, dementia presented to the ED from [facility] due to right lower extremity pain. Patient unable to provide history 2/2 dementia but has some bilateral lower extremity swelling red hot edematous more so on LLE, saw her primary care physician was given a course of Doxycycline for 10 days. However did not improve. Daughter states that patient also been having intermittent fevers that have not improved despite being on antibiotics. Patient will be admitted for management of left lower extremity cellulitis with possible osteomyelitis of the lower extremity. ED course: BP 190/84, HR 74 bpm, saturating 97% room air, labs unremarkable, ESR 52, UA negative for UTI x-ray of right lower extremity shows early osteomyelitis of fourth metatarsal. PMHx: As above SX Hx: Noncontributory Social Hx: Denies alcohol use, denies cigarette use, denies illicit substances including THC FH X: Unknown Exam Vital Signs Temp Pulse Resp BP Pulse Ox O2 Del Method 97.8 F 70 20 191/83 H 97 Room Air 02/02/25 23:24 02/02/25 23:24 02/02/25 23:24 02/02/25 23:24 02/02/25 23:24 02/02/25 23:24 Narrative Exam Physical Exam GENERAL: NAD, AAOx1 HEENT: Moist mucosa. Eyes open, symmetrical, & clear CARDIO: Heart RRR, no obvious murmurs PULM: No noted coughing/dyspnea CTA B/L, no R/W/R GI: Abdomen soft, nondistended, no pain on palpation. BSx4 SKIN/MSK/EXT: +3 bilateral lower extremity edema, seeping, erythematous, right lower foot calcaneum black eschar, no pain on palpation. Pedal pulses present B/L NEURO: AAOx 1, no focal neuro deficits, able to move all 4 extremities Results: Labs 02/03/25 05:15 02/03/25 05:15 Labs: Short CBC 02/02/25 Range/Units 17:15 WBC 5.1 (3.6-11.0) Thou/mm3 Hgb 12.3 (12.0-16.0) g/dL Hct 38.5 (36.0-46.0) % Plt Count 290 (140-440) Thou/mm3 BMP 02/02/25 17:15 Sodium 145 Potassium 4.0 Chloride 110 H Carbon Dioxide 27.4 BUN 16 Creatinine 1.0 Glucose 102 Calcium 9.1 Cardiac Enzymes 02/02/25 Range/Units 17:15 Troponin I < 0.020 (0.0-0.045) ng/mL Liver Function 02/02/25 Range/Units 17:15 Total Bilirubin 0.2 L (0.3-1.2) mg/dL AST 34 (0-34) U/L ALT 14 (10-49) U/L Alkaline Phosphatase 124 H (46-116) U/L Albumin 4.2 (3.4-4.8) gm/dL Urine 02/02/25 Range/Units 19:51 Urine Color Lt-Yellow (Lt Yel-Yel) Urine Clarity Clear (Clear/Hazy) Urine pH 7.0 (5.0-7.0) Ur Specific [place] 1.020 (1.001-1.035) Urine Protein 1+ A (Neg - Trace) Urine Glucose (UA) Negative (Negative) Quality Measures Quality Measures VTE prophylaxis Advance care planning discussed with:: patient Medications Home Medications and Allergies Home Medications ?Medication ?Instructions ?Recorded ?Confirmed ?Type gabapentin 300 mg capsule 300 mg PO .Q24 02/03/2501/14 History metoprolol tartrate 25 mg tablet 25 mg PO Q12H 5 02/03/25 History Allergies Allergy/AdvReac Type Severity Reaction Status Date / Time No Known Allergies Allergy Unverified 02/02/25 15:52 Visit Medications Acetaminophen (Acetaminophen 325 Mg Tablet) 650 mg PO Q6H PRN PRN Reason: Fever >100.4 Stop: 03/05/25 02:40 Acetaminophen (Acetaminophen 325 Mg Tablet) 650 mg PO Q6H PRN PRN Reason: PAIN SCALE 1-3 (mild Stop: 03/05/25 02:40 Enoxaparin Sodium (Enoxaparin Sod Inj 40 Mg/0.4 Ml Syringe) 40 mg SC QDAY [facility] Stop: 02/17/25 08:59 Sodium Chloride (Ns) 1,000 mls @ 75 mls/hr IV .[id number] [facility] Stop: 02/03/25 16:04 Piperacillin/Tazobactam/Dextrose (Zosyn) 50 mls @ 100 mls/hr IV Q8HR YEYO; Protocol Stop: 02/10/25 02:43 Lorazepam (Lorazepam 2 Mg/Ml Vial) 2 mg IVP PRN PRN PRN Reason: ANXIETY Stop: 02/08/25 02:47 Ondansetron HCl (Ondansetron Inj 2 Mg/Ml Inj 2 Ml) 4 mg IVP Q6H PRN; Protocol PRN Reason: NAUSEA OR VOMITING Stop: 03/05/25 02:40 Pharmacy Consult (Vancomycin Pharmacy To Dose 1 Each Each) 1 each IV QDAY YEYO Stop: 03/05/25 08:59 Pharmacy Consult (Vancomycin Pharmacy To Dose 1 Each Each) 1 each IV QDAY [facility] Stop: 03/05/25 08:59 Sennosides (Senna Tablet) 1 tab PO QDAY YEYO; Protocol Stop: 03/05/25 08:59 Discontinued Medications Hydralazine HCl (Hydralazine Inj 20 Mg/Ml Vial) 10 mg IVP X1 ONE Stop: 02/02/25 21:02 Last Admin: 02/02/25 22:17 Dose: Not Given Piperacillin/Tazobactam/Dextrose (Zosyn) 3.375 gm in 50 mls @ 100 mls/hr IV X1 ONE; Protocol Stop: 02/02/25 22:55 Last Infusion: 02/02/25 23:45 Dose: Infused Vancomycin/Sodium Chloride (Vancomycin/Ns 1 Gm Ivpb) 200 mls @ 120 mls/hr IV X1 ONE Stop: 02/03/25 00:24 Last Infusion: 02/03/25 01:20 Dose: Infused Lorazepam (Lorazepam 2 Mg/Ml Vial) 2 mg IVP X1 ONE Stop: 02/03/25 02:48 Assessment & Plan Plan 74-year-old female with past medical history stated above who presented to the ED with bilateral lower extremity cellulitis. Patient will be admitted for IV antibiotics. #Left lower extremity cellulitis #Failed outpatient tx cellulitis #Early R/ osteomyelitis of fourth metatarsal right lower extremity pain. Patient has left lower extremity swelling red erythematous edematous saw her primary care physician was given a course of antibiotics for 2 weeks, however continues with intermittent fevers and with no improvement in pain Patient has black eschar in RLE near the calcaneum Foot XR of RLE early osteo of 4thmetatarsal ? Vancomycin ? Cefepime ? Follow cultures ? IV maintenance fluids ? Surgery consulted #Acute cystitis Abx as above F/U Ucx #Lymphedema #Moderate dementia Continue home medications Continue outpatient follow up. Chronic issues: #Dementia #Hypertension #Hyperlipidemia Resume antihypertensives as taken at home gave hydralazine 10mg IV x1 as SBP>180-190s ? Pending med rec Case discussed with my attending Dr. Mark Solis MD PGY-2 Disclaimer: Despite multiple revisions, due to the dictation software being used, the document bellow may not be free of grammatical errors including phonetic/typographic errors. However, this does not deter from our commitment to providing health care in the patient's best interest in mind. Attending Provider Attestation/Addendum After examination of the patient and review of the clinical data I feel that this patient needs admission to the hospital for further treatment/evaluation. Plan of care discussed with patient and is in agreement. I Emeka Flores MD, attest that I was physically present for mckeon portions of evaluation, and examined patient, labs and imagings and plan of care were discussed with IM residents team, and I agree with the findings and plans documented above.
[2025-02-03] MEDS: SODIUM CHLORIDE 0.9% 1000 ML 1,000 ML 75 ML IV (03:03)
[2025-02-03] MEDS: CEFEPIME INJ 1 GM in SODIUM CHLORIDE 0.9% (Popper) 50 ML IV ×2 (03:05→08:46)
[2025-02-03] MEDS: LORazepam 2 MG/ML VIAL IVP (03:21)
--- NOTE | 2025-02-03 03:23 | PC.NURSE ---
Pt continues to remove IV lines x2 [id number] x4 pulse oxemetry removed and she is very anxious trying to get out of bed repeatidly asking to get up and leave Pt is confused dementia baseline
--- NOTE | 2025-02-03 03:27 | PC.NURSE ---
spoke to Dr Juanito Solis regarding ativan order 2mg for MRI and due to Pt kelly JACKSON okayed dose for now to five [address] another order to be given prior to MRI Pt is sundowning and removing IV and other medical eqpt
--- NOTE | 2025-02-03 04:00 | PC.NURSE ---
JACKSON to Jud NGUYEN, informed her of PRN ativan 2mg for MRI anxiety
[2025-02-03] MEDS: Vancomycin Inj 1,000 MG in SODIUM CHLORIDE 0.9% 250 ML 250 ML 120 MG IV (04:41)
--- NOTE | 2025-02-03 05:40 | PC.NURSE ---
Unable to do med rec DT pt received Ativan in ER and unable to remember her home meds, pt is confused at this time. Will pass it on to the morning nurse, daughter will be here battery recharger per ER nurse.
[2025-02-03 06:09] LABS: Basophils # (Auto) 0.0 Thou/mm3 (0.0-0.2); Basophils % (Auto) 0 % (0-2.5); Eosinophils # (Auto) 0.3 Thou/mm3 (0.0-0.5); Eosinophils % (Auto) 5 % (0-10); Hematocrit 34.1 % (36.0-46.0); Hemoglobin 11.0 g/dL (12.0-16.0); Immature Granulocytes Auto 0.01 Thou/mm3 (0.00-0.00); Lymphocytes # (Auto) 1.0 Thou/mm3 (1.0-4.8); Lymphocytes % (Auto) 18 % (10-50); Mean Corpuscular HGB Conc 32.3 g/dl (31.0-37.0); Mean Corpuscular Hemoglobin 28.0 pg (25.0-35.0); Mean Corpuscular Volume 87 fL (80-100); Monocytes # (Auto) 0.5 Thou/mm3 (0.0-0.8); Monocytes % (Auto) 8 % (0-12); Neutrophils # (Auto) 3.7 Thou/mm3 (1.8-7.7); Neutrophils % (Auto) 68 % (37-80); Nucleated Red Blood Cell # 0.00 Thou/mm3 (0.00-0.00); Nucleated Red Blood Cell % 0 /100 WBC (0); Platelet Count 233 Thou/mm3 (140-440); RDW Standard Deviation 44.8 fL (36.4-46.3); Red Blood Count 3.93 Miln/mm3 (4.00-5.20); White Blood Count 5.5 Thou/mm3 (3.6-11.0)
[2025-02-03 06:29] LABS: Glucose Estimated Average 126 mg/dL (80-131); Hemoglobin A1C 6.0 % Hgb (4.8-6.0)
[2025-02-03 06:37] LABS: Alanine Aminotransferase 11 U/L (10-49); Albumin, Serum 3.5 gm/dL (3.4-4.8); Albumin/Globulin Ratio 1.6 (1.2-2.2); Alkaline Phosphatase 95 U/L (46-116); Anion Gap 10 (7-16); Aspartate Amino Transferase 28 U/L (0-34); BUN/Creatinine Ratio 14 Ratio (12-20); Bilirubin,Total 0.3 mg/dL (0.3-1.2); Blood Urea Nitrogen 14 mg/dL (9-23); Calcium 8.2 mg/dL (8.3-10.6); Calcium (Corrected) 8.6 mg/dL (8.5-10.1); Carbon Dioxide 26.0 mMol/L (20.0-31.0); Chloride 111 mMol/L (98-107); Creatinine (Component) 1.0 mg/dL (0.6-1.3); Estimated Creatinine Clearance 55.6 mL/min (>60); Globulin 2.2 gm/dL (2.3-3.5); Glucose 105 mg/dL (74-106); Magnesium 2.0 mg/dL (1.6-2.6); Osmolality,Calculated 292 (275-295); Potassium 3.5 mMol/L (3.4-5.1); Sodium 147 mMol/L (136-145); Total Protein 5.7 gm/dL (5.7-8.2); eGFR 59 See Note
--- NOTE | 2025-02-03 06:39 | PC.NURSE ---
DAughter Erica called and get update for the pts, this nurse asked if she know pts med rec but she said pt is in [place] at this time and doesnt know her mom's medication. Per Erica to call Lala her other sister.
--- NOTE | 2025-02-03 06:40 | PC.NURSE ---
Called Lala pt daughter but no answer.Will pass it on to the morning nurse.
[2025-02-03] MEDS: ENOXAPARIN SOD INJ 40 MG/0.4 ML SYRINGE SC (08:47)
--- NOTE | 2025-02-03 11:15 | PD.SURCONS ---
HPI Consult details Consult date: 02/03/25 Reason for consultation narrative: The patient was seen on consultation for possible osteomyelitis of the right foot History of present illness: The patient has developed a lymphedema since this September on 7 cellulitis over both the legs. She denies having any ulceration or swelling of the toes on either side. But her right hip has shown some discoloration. Meds Home Medications and Allergies Home Medications ?Medication ?Instructions ?Recorded ?Confirmed ?Type gabapentin 300 mg capsule 300 mg PO .Q24 02/03/25 02/03/25 History metoprolol tartrate 25 mg tablet 25 mg PO Q12H 02/03/25 02/03/25 History Allergies Allergy/AdvReac Type Severity Reaction Status Date / Time No Known Allergies Allergy Unverified 02/02/25 15:52 Exam Vital Signs Temp Pulse Resp BP Pulse Ox O2 Del Method 97.9 F 71 19 163/97 H 99 Room Air 02/03/25 08:00 02/03/25 08:00 02/03/25 08:00 02/03/25 08:00 02/03/25 08:00 02/03/25 08:00 Narrative Exam My physical examination showed an obese white female with normal vital signs other than mildly elevated BP Routine Extremities Exam Comments: Extremities revealed bilateral swelling in the thigh and leg suggesting lymphedema or other venous insufficiency. There is cellulitis over both the legs. Evaluation of the toes showed no abnormality. Results Results: Imaging Imaging narrative: X-rays of the right foot showed possible early osteomyelitis of the fourth metatarsal Assessment & Plan Additional Assessment Additional comments: Impression: Possible osteomyelitis of the fourth metatarsal right foot Plan Plan: As a general surgeon I have nothing to offer for this patient other than recommending antibiotic therapy and address other problem related to the vascular system. The cause of the lymphedema is not clear. She has seen vascular surgeon in [place] and they are planning to do some vein ligation. Thank you very much
--- NOTE | 2025-02-03 12:52 | PC.SS ---
Mireya Morales is a 74-year-old female admitted to [facility] Cellulitis. SS conducted bedside contact with the patient to complete initial assessment and to discuss discharge planning. Role and reason explained. Pt was accompanied by her dtr Lala [facility] [phone] and her son in law Juan Alberto [facility] [phone]. Lala answered on pt behalf. Lala stated pt is residing at [facility] and has caregivers who help throughout the day but not overnight. Pt also aligned with [facility]. Pt has had a decline in mobility over the last few weeks and has required moderate assist. Pt baseline is walking with her rollator walker. DC options discussed and they wish for pt to transition to SNF/Short term rehab. Pts PCP is Dr. Childs last visit was last week, neurologist is Dr. Hunt, [employer] Dr. Evangelista. Pt also has an appointment at [facility] Special[facility] in [place] Feb 27. Lala is interested in establishing pt with [facility] Medical Coding Auditor to be contacted via email. At this time, there are no preference for SNF. SS will update Lala with choices when available for SNF. SS will remain available for any additional needs or concerns. POA brought in from Lala and placed on chart. DC plan: SNF DM: Lala PCP: Dr. Childs
[2025-02-03] MEDS: METOPROLOL TARTRATE 25 MG TABLET PO (12:53)
--- NOTE | 2025-02-03 13:31 | PC.SS ---
SNF referral submitted, pending responses. Pt will require auth, pending PT eval and IV ABX dosage to update facilities.
--- NOTE | 2025-02-03 16:17 | ESPR_ITS ---
Documentation for date of: 02/03/25 Subjective Subjective Interval history: New admission overnight, admitted for osteomyelitis of the right foot, and stasis wounds questionable cellulitis.?Patient seen and examined at bedside this AM, was pleasantly confused however at her baseline A&O x1.?Later in the morning seen with daughter at bedside who is able to provide more history. She states that patient lives at an assisted living facility and has home health nurse visits as well as caregiver visits, and they had been wrapping her legs however the lymphedema has recently been worsening bilaterally and she often has seeping fluid. Patient is also already following with Vascular in [place] and planning to have a procedure for her veins. Labs and vitals were reviewed. Patient's BP was uncontrolled this afternoon, 223/99 therefore was started on losartan 50 mg qday and given hydralazine 10 mg IV x1.?Patient's home metoprolol tartrate 25 mg BID was restarted earlier however telemetry noted HR dropped to 30s so medication is held for now. Antibiotics were deescalated from cefepime and vancomycin to ceftriaxone and doxycycline. MRI of the right foot is pending, prn Ativan was ordered since the last attempt patient had MRI it was unsuccessful due to motion/agitation. Will also plan for PICC line placement Wednesday for IV antibiotics for osteo. Review of systems otherwise negative except what is mentioned above. Exam Vital Signs Temp Pulse Resp BP Pulse Ox O2 Del Method 97.4 F 37 L 20 173/89 H 97 Room Air 02/03/25 11:59 02/03/25 13:34 02/03/25 11:59 02/03/25 12:53 02/03/25 11:59 02/03/25 11:59 Narrative Exam GENERAL: NAD, AAOx1 HEENT: Moist mucosa. Eyes open, symmetrical, & clear CARDIO: Heart RRR, no obvious murmurs PULM: No noted coughing/dyspnea CTA B/L, no R/W/R GI: Abdomen soft, nondistended, no pain on palpation. BSx4 SKIN/MSK/EXT: +3 bilateral lower extremity edema, seeping, erythematous, right lower foot calcaneum black eschar, no pain on palpation. Pedal pulses present B/L NEURO: AAOx 1, no focal neuro deficits, able to move all 4 extremities Objective Labs 02/04/25 04:35 02/04/25 04:35 Labs: Laboratory Results - last 24 hr 02/02/25 02/02/25 02/03/25 17:15 19:51 05:15 WBC 5.1 5.5 RBC 4.32 3.93 L Hgb 12.3 11.0 L Hct 38.5 34.1 L MCV 89 87 MCH 28.5 28.0 MCHC 31.9 32.3 RDW Std Deviation 45.9 44.8 Plt Count 290 233 D Neut % (Auto) 50 68 Lymph % (Auto) 33 18 Yates % (Auto) 10 8 Eos % (Auto) 6 5 Baso % (Auto) 0 0 Neut # (Auto) 2.5 3.7 Lymph # (Auto) 1.7 1.0 Yates # (Auto) 0.5 0.5 Eos # (Auto) 0.3 0.3 Baso # (Auto) 0.0 0.0 Immature Gran # (Auto) 0.02 H 0.01 H Absolute Nucleated RBC 0.00 0.00 Immature Gran % 0 0 Nucleated RBC % 0 0 ESR 52 H PT 10.1 INR 0.9 APTT 29.5 Sodium 145 147 H Potassium 4.0 3.5 D Chloride 110 H 111 H Carbon Dioxide 27.4 26.0 Anion Gap 8 10 BUN 16 14 Creatinine 1.0 1.0 Estim Creat Clear Calc 54.5 L 55.6 L eGFR 59 L 59 L BUN/Creatinine Ratio 16 14 Glucose [address] Glu mg/dL 126 Hemoglobin A1c 6.0 Calculated Osmolality 289 292 Lactic Acid 1.4 Calcium 9.1 8.2 L Corrected Calcium 9.1 8.6 Magnesium 2.2 2.0 Total Bilirubin 0.2 L 0.3 AST 34 28 ALT 14 11 Alkaline Phosphatase 124 H 95 D Troponin I < 0.020 C-Reactive Prot, Quant < 0.5 B-Natriuretic Peptide 96 Total Protein 6.5 5.7 Albumin 4.2 3.5 D Globulin 2.3 2.2 L Albumin/Globulin Ratio 1.8 1.6 Procalcitonin < 0.04 TSH 1.65 Free T4 1.23 Ur Collection Type Clean Catch Urine Color Lt-Yellow Urine Clarity Clear Urine pH 7.0 Ur Specific [place] 1.020 Urine Protein 1+ A Urine Glucose (UA) Negative Urine Ketones Negative Urine Blood Negative Urine Nitrite Negative Urine Bilirubin Negative Urine Urobilinogen (Auto) Negative Ur Leukocyte Esterase Positive Urine RBC 8 H Urine WBC 13 H Ur Squamous Epith Cells 1 Urine Bacteria None Ur Culture Indicated? Yes Quality Measures Quality Measures VTE prophylaxis Advance care planning discussed with:: patient Assessment & Plan Assessment Current Active Medications: Generic Name Dose Route Start Last Admin Trade Name Freq PRN Reason Stop Dose Admin Acetaminophen 650 mg 02/03/25 02:41 Acetaminophen 325 Mg Tablet PO 03/05/25 02:40 Q6H PRN Fever >100.4 Acetaminophen 650 mg 02/03/25 02:41 Acetaminophen 325 Mg Tablet PO 03/05/25 02:40 Q6H PRN PAIN SCALE 1-3 (mild Enoxaparin Sodium 40 mg 02/03/25 09:00 02/03/25 08:47 Enoxaparin Sod Inj 40 Mg/0.4 Ml Syringe SC 02/17/25 08:59 40 mg QDAY YEYO Administration Cefepime HCl 1 gm/ Sodium 50 mls @ 100 mls/hr 02/03/25 02:51 02/03/25 09:16 Chloride IV 02/10/25 02:50 Infused Q12HR YEYO Infusion Vancomycin HCl/Dextrose 300 mls @ 120 mls/hr 02/04/25 10:00 Vancomycin/D5w 1500 Mg Ivpb IV 02/11/25 09:59 QDAY@1000 YEYO Protocol Lorazepam 2 mg 02/03/25 14:08 Lorazepam 2 Mg/Ml Vial IVP 02/04/25 14:07 X1 PRN AGITATION (SEVERE) Metoprolol Tartrate 25 mg 02/03/25 12:00 02/03/25 12:53 Metoprolol Tartrate 25 Mg Tablet PO 03/05/25 11:59 25 mg On Hold: 02/03/25 13:56 Q12HR YEOY Administration Ondansetron HCl 4 mg 02/03/25 02:41 Ondansetron Inj 2 Mg/Ml Inj 2 Ml IVP 03/05/25 02:40 Q6H PRN NAUSEA OR VOMITING Protocol Pharmacy Consult 1 each 02/03/25 09:00 Vancomycin Pharmacy To Dose 1 Each Each IV 03/05/25 08:59 QDAY PRN PROTOCOL Sennosides 1 tab 02/03/25 09:00 02/03/25 08:47 Senna Tablet PO 03/05/25 08:59 Not Given QDAY YEYO Protocol Plan 74-year-old female with past medical history stated above who presented to the ED with bilateral lower extremity wounds concerning for cellulitis and right foot osteomyelitis. Patient will be admitted for IV antibiotics. #Lower extremity cellulitis versus stasis wounds bilaterally #Early R osteomyelitis of fourth metatarsal Patient noted to be having right foot pain, at the heel portion most likely where the osteo is. Patient has black eschar in RLE near the calcaneum Patient has left lower extremity swelling red erythematous edematous saw her primary care physician was given a course of antibiotics for 2 weeks, however continues with intermittent fevers and with no improvement in pain Foot XR of RLE early osteo of 4th metatarsal ? Vancomycin discontinued ? Cefepime discontinued ? Started IV ceftriaxone 2 q qday (6 weeks until 03/16/2025) ? Started PO doxycycline 100 mg BID (6 weeks until 03/16/2025) ? Follow cultures ? Surgery consulted, recommended to continue IV antibiotics, no debridement planned ? Pending R foot MRI #Hypertension Patient has had uncontrolled hypertension this admission. Prescribed history shows a number of previous medications however patient apparently is only currently taking the metoprolol. ? Started metoprolol however then held due to bradycardia to 30s ? Started losartan 50 mg qday, uptitrate as needed #Lymphedema Patient has significant venous stasis disease and lymphedema bilaterally. Venous doppler negative this admission for DVT. ? Continue outpatient follow up with Vascular surgery in [place] #Positive urinalysis UA was barely positive with positive leukocyte esterase, 13 WBCs, and no bacteria. Patient currently is denying any symptoms. ? F/U urine culture #Moderate dementia Patient follows with Dr. Hunt outpatient. Currently not taking any medications. ? Continue outpatient follow up #Hyperlipidemia LDL 103 this admission ? Consider statin therapy DVT prophylaxis: Lovenox GI prophylaxis: Not indicated Diet: Cardiac Cronin: None Lines: Peripheral IV Antibiotics: Ceftriaxone [02/03/2025- ], doxycycline [02/03/2025- ] CODE STATUS: DNR Reason for hospitalization: Osteomyelitis Patient plan of care was discussed with the attending physician, Dr. Brown. Dipika Liu, PGY-3 Attending Provider Attestation/Addendum I have discussed and was present for the essential components of the history, physical examination, diagnosis, and treatment plan with the resident. I agree with the patient's care as documented by the resident and amended herein by me. Eriberto Brown DO. Although this document has been carefully reviewed, there may still be some phonetic and other typographical errors. These errors are purely grammatical due to imperfections in the software program and should not be construed in any way to compromise the substance of the patient's medical care during this visit. Patient seen and evaluated this AM. No acute events overnight, vital signs stable, patient afebrile, patient was pleasant this morning, had no subjective complaints. Significant labs including normal WBC, hemoglobin 11 but stable, sodium 147, chloride 111 and potassium 3.5. Renal function WNL. Urinalysis was positive however patient completely asymptomatic, DVT ultrasound performed on her lower extremities was also negative. For now we will de-escalate antibiotics to ceftriaxone and doxycycline, will continue fluids for now and place an order for PICC line. Patient does have an MRI pending of her right foot which is pending. Patient will also need close follow-up with podiatry upon discharge. Patient's family was at bedside, plan for today was explained to them all questions answered satisfactorily.
[2025-02-03] MEDS: hydrALAZINE INJ 20 MG/ML VIAL 10 MG IVP (16:41)
[2025-02-03] MEDS: LOSARTAN POTASSIUM 25 MG TABLET 50 MG PO (16:41)
[2025-02-03] MEDS: cefTRIAXone/D5w 2gm 2 GM/50 ML BAG IV (17:38)
[2025-02-03] MEDS: DOXYCYCLINE 100 MG TABLET PO (20:27)
[2025-02-04] VITALS (11 sets, daily range): BP systolic 133–167; BP diastolic 64–111; PULSE 67–91; RESP 18–20; TEMP 36.4–37.3; O2SAT 95–97
[2025-02-04 05:52] LABS: Basophils # (Auto) 0.0 Thou/mm3 (0.0-0.2); Basophils % (Auto) 0 % (0-2.5); Eosinophils # (Auto) 0.3 Thou/mm3 (0.0-0.5); Eosinophils % (Auto) 5 % (0-10); Hematocrit 34.7 % (36.0-46.0); Hemoglobin 11.3 g/dL (12.0-16.0); Immature Granulocytes Auto 0.01 Thou/mm3 (0.00-0.00); Lymphocytes # (Auto) 1.3 Thou/mm3 (1.0-4.8); Lymphocytes % (Auto) 29 % (10-50); Mean Corpuscular HGB Conc 32.6 g/dl (31.0-37.0); Mean Corpuscular Hemoglobin 27.9 pg (25.0-35.0); Mean Corpuscular Volume 86 fL (80-100); Monocytes # (Auto) 0.4 Thou/mm3 (0.0-0.8); Monocytes % (Auto) 9 % (0-12); Neutrophils # (Auto) 2.6 Thou/mm3 (1.8-7.7); Neutrophils % (Auto) 56 % (37-80); Nucleated Red Blood Cell # 0.00 Thou/mm3 (0.00-0.00); Nucleated Red Blood Cell % 0 /100 WBC (0); Platelet Count 242 Thou/mm3 (140-440); RDW Standard Deviation 44.0 fL (36.4-46.3); Red Blood Count 4.05 Miln/mm3 (4.00-5.20); White Blood Count 4.6 Thou/mm3 (3.6-11.0)
[2025-02-04 06:00] LABS: INR 1.0 (0.9-1.3); Prothrombin Time 10.9 Seconds (9.0-12.2)
[2025-02-04 06:10] LABS: Alanine Aminotransferase 12 U/L (10-49); Albumin, Serum 3.3 gm/dL (3.4-4.8); Albumin/Globulin Ratio 1.7 (1.2-2.2); Alkaline Phosphatase 92 U/L (46-116); Anion Gap 12 (7-16); Aspartate Amino Transferase 28 U/L (0-34); BUN/Creatinine Ratio 13 Ratio (12-20); Bilirubin,Total 0.3 mg/dL (0.3-1.2); Blood Urea Nitrogen 12 mg/dL (9-23); Calcium 7.9 mg/dL (8.3-10.6); Calcium (Corrected) 8.5 mg/dL (8.5-10.1); Carbon Dioxide 25.1 mMol/L (20.0-31.0); Chloride 111 mMol/L (98-107); Creatinine (Component) 0.9 mg/dL (0.6-1.3); Estimated Creatinine Clearance 61.8 mL/min (>60); Globulin 1.9 gm/dL (2.3-3.5); Glucose 85 mg/dL (74-106); Magnesium 1.8 mg/dL (1.6-2.6); Osmolality,Calculated 292 (275-295); Phosphorous 3.1 mg/dL (2.4-5.1); Potassium 3.6 mMol/L (3.4-5.1); Sodium 148 mMol/L (136-145); Thyroid Stimulating Hormone 1.24 uIU/mL (0.55-4.78); Total Protein 5.2 gm/dL (5.7-8.2); eGFR > 60 See Note
[2025-02-04] MEDS: LOSARTAN POTASSIUM 25 MG TABLET 50 MG PO ×2 (08:11→09:27)
[2025-02-04] MEDS: DOXYCYCLINE 100 MG TABLET PO ×2 (08:11→21:26)
[2025-02-04] MEDS: ENOXAPARIN SOD INJ 40 MG/0.4 ML SYRINGE SC (08:11)
--- NOTE | 2025-02-04 11:25 | PC.SS ---
SS attempted to make over the phone contact with pt rockyr/KIMBERLI Gomez [phone] to provide choices for SNF. No answer. VM left. All accpeted: [facility]-Yes [facility]- Private room available [facility]-Yes [facility]- Yes [facility]- Yes if no IV
[2025-02-04] MEDS: cefTRIAXone/D5w 2gm 2 GM/50 ML BAG IV (14:21)
--- NOTE | 2025-02-04 16:22 | PD.RESPRO ---
Documentation for date of: 02/04/25 Subjective Subjective Interval history: Patient is seen and examined at bedside. No acute event overnight events. Denies any other complaints. Patient reported to have dementia and memory problems Denies pain in the lower extremity. On physical examination, noted to have good bilateral peripheral pulses Vitals are stable but noted to have, mildly elevated blood pressure for which an extra dose of losartan 50 mg is given and started on losartan 100 mg once daily MRI right foot is pending, likely will be done tomorrow. Based on the results if MRI confirms osteomyelitis, we will proceed with PICC line placement Patient and the family are agreeable to SNF placement. Will work on that Adjust the blood pressure medications tomorrow based on the readings. Exam Vital Signs Temp Pulse Resp BP Pulse Ox O2 Del Method 97.5 F 68 18 164/85 H 95 Room Air 02/04/25 11:45 02/04/25 12:00 02/04/25 11:45 02/04/25 11:45 02/04/25 11:45 02/04/25 11:45 Narrative Exam GENERAL: NAD, AAOx1 HEENT: Moist mucosa. Eyes open, symmetrical, & clear CARDIO: Heart RRR, no obvious murmurs PULM: No noted coughing/dyspnea CTA B/L, no R/W/R GI: Abdomen soft, nondistended, no pain on palpation. BSx4 SKIN/MSK/EXT: +3 bilateral lower extremity edema, seeping, erythematous, right lower foot calcaneum black eschar, no pain on palpation. Pedal pulses present B/L NEURO: AAOx 1, no focal neuro deficits, able to move all 4 extremities Objective Labs 02/05/25 04:44 02/06/25 04:24 Labs: Laboratory Results - last 24 hr 02/04/25 04:35 WBC 4.6 RBC 4.05 Hgb 11.3 L Hct 34.7 L MCV 86 MCH 27.9 MCHC 32.6 RDW Std Deviation 44.0 Plt Count 242 Neut % (Auto) 56 Lymph % (Auto) 29 [place] % (Auto) 9 Eos % (Auto) 5 Baso % (Auto) 0 Neut # (Auto) 2.6 Lymph # (Auto) 1.3 [place] # (Auto) 0.4 Eos # (Auto) 0.3 Baso # (Auto) 0.0 Immature Gran # (Auto) 0.01 H Absolute Nucleated RBC 0.00 Immature Gran % 0 Nucleated RBC % 0 PT 10.9 INR 1.0 Sodium 148 H Potassium 3.6 Chloride 111 H Carbon Dioxide 25.1 Anion Gap 12 BUN 12 Creatinine 0.9 Estim Creat Clear Calc 61.8 eGFR > 60 BUN/Creatinine Ratio 13 Glucose 85 Calculated Osmolality 292 Calcium 7.9 L Corrected Calcium 8.5 Phosphorus 3.1 Magnesium 1.8 Total Bilirubin 0.3 AST 28 ALT 12 Alkaline Phosphatase 92 Total Protein 5.2 L Albumin 3.3 L Globulin 1.9 L Albumin/Globulin Ratio 1.7 TSH 1.24 Quality Measures Quality Measures VTE prophylaxis Advance care planning discussed with:: patient, child and legal surragate Assessment & Plan Assessment Current Active Medications: Generic Name Dose Route Start Last Admin Trade Name Freq PRN Reason Stop Dose Admin Acetaminophen 650 mg 02/03/25 02:41 Acetaminophen 325 Mg Tablet PO 03/05/25 02:40 Q6H PRN Fever >100.4 Acetaminophen 650 mg 02/03/25 02:41 Acetaminophen 325 Mg Tablet PO 03/05/25 02:40 Q6H PRN PAIN SCALE 1-3 (mild Doxycycline Hyclate 100 mg 02/03/25 21:00 02/04/25 08:11 Doxycycline 100 Mg Tablet PO 02/10/25 20:59 100 mg BID YEYO Administration Enoxaparin Sodium 40 mg 02/03/25 09:00 02/04/25 08:11 Enoxaparin Sod Inj 40 Mg/0.4 Ml Syringe SC 02/17/25 08:59 40 mg QDAY YEYO Administration Ceftriaxone Sodium/Dextrose 2 gm in 50 mls @ 100 mls/hr 02/03/25 16:33 02/04/25 14:21 Rocephin/D5w 2gm IV 02/10/25 16:32 100 mls/hr QDAY@1400 YEYO Administration Losartan Potassium 100 mg 02/05/25 09:00 Losartan Potassium 25 Mg Tablet PO 03/07/25 08:59 QDAY YEYO Ondansetron HCl 4 mg 02/03/25 02:41 Ondansetron Inj 2 Mg/Ml Inj 2 Ml IVP 03/05/25 02:40 Q6H PRN NAUSEA OR VOMITING Protocol Quetiapine Fumarate 25 mg 02/03/25 20:19 Quetiapine Fumarate 25 Mg Tablet PO 03/05/25 20:59 HS PRN AGITATION (MILD) Sennosides 1 tab 02/03/25 09:00 02/04/25 08:11 Senna Tablet PO 03/05/25 08:59 1 tab QDAY YEYO Administration Protocol Plan 74-year-old female with past medical history stated above who presented to the ED with bilateral lower extremity wounds concerning for cellulitis and right foot osteomyelitis. Patient will be admitted for IV antibiotics. #Lower extremity cellulitis versus stasis wounds bilaterally #Early R osteomyelitis of fourth metatarsal Patient noted to be having right foot pain, at the heel portion most likely where the osteo is. Patient has black eschar in RLE near the calcaneum Patient has left lower extremity swelling red erythematous edematous saw her primary care physician was given a course of antibiotics for 2 weeks, however continues with intermittent fevers and with no improvement in pain Foot XR of RLE early osteo of 4th metatarsal ? Vancomycin discontinued ? Cefepime discontinued ? Started IV ceftriaxone 2 q qday (6 weeks until 03/16/2025) ? Started PO doxycycline 100 mg BID (6 weeks until 03/16/2025) ? Blood cultures - No growth after 24hrs ? Surgery consulted, recommended to continue IV antibiotics, no debridement planned ? Pending R foot MRI, based on the results will proceed with PICC line palcement. #Hypertension Patient has had uncontrolled hypertension this admission. Prescribed history shows a number of previous medications however patient apparently is only currently taking the metoprolol. ? Started metoprolol however then held due to bradycardia to 30s ? Started losartan 50 mg qday, uptitrate as needed #Lymphedema Patient has significant venous stasis disease and lymphedema bilaterally. Venous doppler negative this admission for DVT. ? Continue outpatient follow up with Vascular surgery in [place] #Positive urinalysis UA was barely positive with positive leukocyte esterase, 13 WBCs, and no bacteria. Patient currently is denying any symptoms. ? urine culture, No growth #Moderate dementia Patient follows with Dr. Hunt outpatient. Currently not taking any medications. ? Continue outpatient follow up #Hyperlipidemia LDL 103 this admission ? Consider statin therapy DVT prophylaxis: Lovenox GI prophylaxis: Not indicated Diet: Cardiac Cronin: None Lines: Peripheral IV Antibiotics: Ceftriaxone [02/03/2025- ], doxycycline [02/03/2025- ] CODE STATUS: DNR Reason for hospitalization: Osteomyelitis Patient plan of care was discussed with the attending physician, Dr. Brown. Lonny Leal, PGY2 Attending Provider Attestation/Addendum I have discussed and was present for the essential components of the history, physical examination, diagnosis, and treatment plan with the resident. I agree with the patient's care as documented by the resident and amended herein by me. Eriberto Brown, DO. Although this document has been carefully reviewed, there may still be some phonetic and other typographical errors. These errors are purely grammatical due to imperfections in the software program and should not be construed in any way to compromise the substance of the patient's medical care during this visit.
[2025-02-05] VITALS (11 sets, daily range): BP systolic 151–184; BP diastolic 75–104; PULSE 61–93; RESP 17–18; TEMP 36.4–36.8; O2SAT 95–97; BMI 14.0
--- NOTE | 2025-02-05 | XR_ITS ---
Examination: MRI right foot, without contrast Date and time of exam: February 05, 2025, 1154 hours, comparison January 16, 2025 Technique: Multiple axial sagittal and coronal images of the right foot have been obtained with the Siemens high-resolution 1.5 Georgie MRI scanner. Images obtained include T2-weighted fat-suppressed sagittal sections, TR 3500, TE 46, T2 weighted coronal fat suppressed images, TR 3050, TE 84, T2-weighted transverse fat suppressed images, TR 3260, TE 63, proton density transverse images, TR 4720 TE 46, and T1 weighted coronal images, TR 560, TE 13. Findings: Soft tissue swelling lateral to the fifth metatarsal and around the fifth metatarsal phalangeal joint and around the fourth metatarsal Extensive edema in the dorsum of the foot However, no hubert cortical bone destruction Large soft tissue defect and infection plantar to the calcaneus, 17 x 10 x 22 mm soft tissue abscess plantar to the calcaneus Early cortical bone destruction plantar surface of the calcaneus IMPRESSION: Small soft tissue abscess plantar to the calcaneus Early osteomyelitis plantar surface of the calcaneus
[2025-02-05] MEDS: ACETAMINOPHEN 325 MG TABLET 650 MG PO (01:24)
[2025-02-05 05:47] LABS: Basophils # (Auto) 0.0 Thou/mm3 (0.0-0.2); Basophils % (Auto) 0 % (0-2.5); Eosinophils # (Auto) 0.2 Thou/mm3 (0.0-0.5); Eosinophils % (Auto) 5 % (0-10); Hematocrit 34.8 % (36.0-46.0); Hemoglobin 11.4 g/dL (12.0-16.0); Immature Granulocytes Auto 0.02 Thou/mm3 (0.00-0.00); Lymphocytes # (Auto) 1.3 Thou/mm3 (1.0-4.8); Lymphocytes % (Auto) 29 % (10-50); Mean Corpuscular HGB Conc 32.8 g/dl (31.0-37.0); Mean Corpuscular Hemoglobin 28.4 pg (25.0-35.0); Mean Corpuscular Volume 87 fL (80-100); Monocytes # (Auto) 0.4 Thou/mm3 (0.0-0.8); Monocytes % (Auto) 9 % (0-12); Neutrophils # (Auto) 2.6 Thou/mm3 (1.8-7.7); Neutrophils % (Auto) 56 % (37-80); Nucleated Red Blood Cell # 0.00 Thou/mm3 (0.00-0.00); Nucleated Red Blood Cell % 0 /100 WBC (0); Platelet Count 250 Thou/mm3 (140-440); RDW Standard Deviation 45.0 fL (36.4-46.3); Red Blood Count 4.01 Miln/mm3 (4.00-5.20); White Blood Count 4.6 Thou/mm3 (3.6-11.0)
[2025-02-05 06:28] LABS: Alanine Aminotransferase 9 U/L (10-49); Albumin, Serum 3.3 gm/dL (3.4-4.8); Albumin/Globulin Ratio 1.5 (1.2-2.2); Alkaline Phosphatase 86 U/L (46-116); Anion Gap 10 (7-16); Aspartate Amino Transferase 25 U/L (0-34); BUN/Creatinine Ratio 13 Ratio (12-20); Bilirubin,Total 0.2 mg/dL (0.3-1.2); Blood Urea Nitrogen 13 mg/dL (9-23); Calcium 8.5 mg/dL (8.3-10.6); Calcium (Corrected) 9.1 mg/dL (8.5-10.1); Carbon Dioxide 25.8 mMol/L (20.0-31.0); Chloride 111 mMol/L (98-107); Creatinine (Component) 1.0 mg/dL (0.6-1.3); Estimated Creatinine Clearance 55.6 mL/min (>60); Globulin 2.2 gm/dL (2.3-3.5); Glucose 95 mg/dL (74-106); Magnesium 1.8 mg/dL (1.6-2.6); Osmolality,Calculated 292 (275-295); Phosphorous 2.7 mg/dL (2.4-5.1); Potassium 3.2 mMol/L (3.4-5.1); Sodium 147 mMol/L (136-145); Total Protein 5.5 gm/dL (5.7-8.2); eGFR 59 See Note
--- NOTE | 2025-02-05 08:18 | PC.SS ---
PASRR LVL 1 submitted and downloaded - no further needs
--- NOTE | 2025-02-05 08:31 | PC.SS ---
SS contacted pt insurance, Lars with [employer] to update her on pt need for SNF. Pt still pending PT eval. Lars stated she will keep SS updated when she gets around to pt if she is assigned.
--- NOTE | 2025-02-05 08:37 | PC.SS ---
SS attempted to contact [employer], no answer VM left, in regards to dtr Lala requesting assistance with [employer] process.
[2025-02-05] MEDS: DOXYCYCLINE 100 MG TABLET PO ×2 (09:14→20:51)
[2025-02-05] MEDS: LOSARTAN POTASSIUM 25 MG TABLET 100 MG PO (09:14)
[2025-02-05] MEDS: POTASSIUM CHLORIDE 10% 20 MEQ/15 ML UDC 40 MEQ PO (09:14)
[2025-02-05] MEDS: ENOXAPARIN SOD INJ 40 MG/0.4 ML SYRINGE SC (09:15)
--- NOTE | 2025-02-05 09:27 | PC.SS ---
SS spoke to pt dtr Lala Gomez [phone] in regards to choice for SNF. Per Lala #1 [facility] with Private room, and #2 [facility]. SS reached out to Brandy at [facility] who stated they still have private room available, SS booked [facility] via [facility]. Pt still pending MRI (for osteo poss iv abx) and PT for auth.
[2025-02-05] MEDS: LORazepam 2 MG/ML VIAL IVP (11:31)
[2025-02-05] MEDS: NIFEdipine XL 30 MG TABCR 60 MG PO (11:37)
--- NOTE | 2025-02-05 12:21 | ESPR_ITS ---
<Statement entered by Dipika Liu MD - 02/06/25 07:23> Patient was seen and examined by me personally. I have directly supervised and reviewed documentation by the team resident and agree with its findings with any exceptions or additional findings as below. Plan of care was discussed with the attending, Dr. Brown. Dipika Liu, PGY-3 Documentation for date of: 02/05/25 Subjective Subjective Interval history: No overnight events. Patient was examined at bedside; they appear A&Ox3 and in NAD. Vitals/labs today significant for BP 184/96, sodium 148->147, potassium 3.6->3.2. Physical exam was non-contributory. 02/05 foot MRI has resulted and showed small soft tissue abscess plantar to the calcaneus as well as early osteomyelitis of the plantar surface of the calcaneus. MRSA nasal screen came back positive. Today, consent was able to be obtained from patient's daughter (who is patient's decision-maker) for placement of a PICC line so that patient can complete her 6 week course of IV antibiotics for treatment of her osteomyelitis in the out-patient setting. Once the PICC line is in place, she is anticipated to be discharged (likely tomorrow). Exam Vital Signs Temp Pulse Resp BP Pulse Ox O2 Del Method 98.1 F 74 18 167/104 H 95 Room Air 02/05/25 12:00 02/05/25 12:00 02/05/25 12:00 02/05/25 12:00 02/05/25 12:00 02/05/25 12:00 Narrative Exam GENERAL: NAD, AAOx1 HEENT: Moist mucosa. Eyes open, symmetrical, & clear CARDIO: Heart RRR, no obvious murmurs PULM: No noted coughing/dyspnea CTA B/L, no R/W/R GI: Abdomen soft, nondistended, no pain on palpation. BSx4 SKIN/MSK/EXT: +3 bilateral lower extremity edema, seeping, erythematous, right lower foot calcaneum black eschar, no pain on palpation. Pedal pulses present B/L NEURO: AAOx 1, no focal neuro deficits, able to move all 4 extremities Objective Labs 02/05/25 04:44 02/06/25 04:24 Labs: Laboratory Results - last 24 hr 02/05/25 04:44 WBC 4.6 RBC 4.01 Hgb 11.4 L Hct 34.8 L MCV 87 MCH 28.4 MCHC 32.8 RDW Std Deviation 45.0 Plt Count 250 Neut % (Auto) 56 Lymph % (Auto) 29 [place] % (Auto) 9 Eos % (Auto) 5 Baso % (Auto) 0 Neut # (Auto) 2.6 Lymph # (Auto) 1.3 [place] # (Auto) 0.4 Eos # (Auto) 0.2 Baso # (Auto) 0.0 Immature Gran # (Auto) 0.02 H Absolute Nucleated RBC 0.00 Immature Gran % 0 Nucleated RBC % 0 Sodium 147 H Potassium 3.2 L Chloride 111 H Carbon Dioxide 25.8 Anion Gap 10 BUN 13 Creatinine 1.0 Estim Creat Clear Calc 55.6 L eGFR 59 L BUN/Creatinine Ratio 13 Glucose 95 Calculated Osmolality 292 Calcium 8.5 Corrected Calcium 9.1 Phosphorus 2.7 Magnesium 1.8 Total Bilirubin 0.2 L AST 25 ALT 9 L Alkaline Phosphatase 86 Total Protein 5.5 L Albumin 3.3 L Globulin 2.2 L Albumin/Globulin Ratio 1.5 Quality Measures Quality Measures VTE prophylaxis Advance care planning discussed with:: patient Assessment & Plan Assessment Current Active Medications: Generic Name Dose Route Start Last Admin Trade Name Freq PRN Reason Stop Dose Admin Acetaminophen 650 mg 02/03/25 02:41 Acetaminophen 325 Mg Tablet PO 03/05/25 02:40 Q6H PRN Fever >100.4 Acetaminophen 650 mg 02/03/25 02:41 02/05/25 01:24 Acetaminophen 325 Mg Tablet PO 03/05/25 02:40 650 mg Q6H PRN Administration PAIN SCALE 1-3 (mild Doxycycline Hyclate 100 mg 02/03/25 21:00 02/05/25 09:14 Doxycycline 100 Mg Tablet PO 02/10/25 20:59 100 mg BID YEYO Administration Enoxaparin Sodium 40 mg 02/03/25 09:00 02/05/25 09:15 Enoxaparin Sod Inj 40 Mg/0.4 Ml Syringe SC 02/17/25 08:59 40 mg QDAY YEYO Administration Ceftriaxone Sodium/Dextrose 2 gm in 50 mls @ 100 mls/hr 02/03/25 16:33 02/04/25 14:21 Rocephin/D5w 2gm IV 02/10/25 16:32 100 mls/hr QDAY@1400 YEYO Administration Lorazepam 2 mg 02/05/25 06:33 02/05/25 11:31 Lorazepam 2 Mg/Ml Vial IVP 02/06/25 06:32 2 mg X1 PRN Administration AGITATION (SEVERE) Losartan Potassium 100 mg 02/05/25 09:00 02/05/25 09:14 Losartan Potassium 25 Mg Tablet PO 03/07/25 08:59 100 mg QDAY YEYO Administration Ondansetron HCl 4 mg 02/03/25 02:41 Ondansetron Inj 2 Mg/Ml Inj 2 Ml IVP 03/05/25 02:40 Q6H PRN NAUSEA OR VOMITING Protocol Quetiapine Fumarate 25 mg 02/03/25 20:19 02/05/25 03:00 Quetiapine Fumarate 25 Mg Tablet PO 03/05/25 20:59 25 mg HS PRN Administration AGITATION (MILD) Sennosides 1 tab 02/03/25 09:00 02/05/25 09:15 Senna Tablet PO 03/05/25 08:59 1 tab QDAY YEYO Administration Protocol Plan 74-year-old female with past medical history stated above who presented to the ED with bilateral lower extremity wounds concerning for cellulitis and right foot osteomyelitis. Patient will be admitted for IV antibiotics. #Lower extremity cellulitis versus stasis wounds bilaterally #Early R osteomyelitis of fourth metatarsal Patient noted to be having right foot pain, at the heel portion most likely where the osteo is. Patient has black eschar in RLE near the calcaneum Patient has left lower extremity swelling red erythematous edematous saw her primary care physician was given a course of antibiotics for 2 weeks, however continues with intermittent fevers and with no improvement in pain Foot XR of RLE early osteo of 4th metatarsal ? Vancomycin discontinued ? Cefepime discontinued ? Started IV ceftriaxone 2 q qday (6 weeks until 03/16/2025) ? Started PO doxycycline 100 mg BID (6 weeks until 03/16/2025) ? Blood cultures - No growth after 24hrs ? MRSA positive ? Surgery consulted, recommended to continue IV antibiotics, no debridement planned ? 02/05 foot MRI has resulted and showed small soft tissue abscess plantar to the calcaneus as well as early osteomyelitis of the plantar surface of the calcaneus ? Awaiting PICC line placement (consent already obtained on 02/05 from patient's daughter) for continued out-patient IV antibiotic treatment #Hypertension Patient has had uncontrolled hypertension this admission. Prescribed history shows a number of previous medications however patient apparently is only currently taking the metoprolol. ? Losartan 100 mg PO QD #Lymphedema Patient has significant venous stasis disease and lymphedema bilaterally. Venous doppler negative this admission for DVT. ? Continue outpatient follow up with Vascular surgery in [place] #Positive urinalysis UA was barely positive with positive leukocyte esterase, 13 WBCs, and no bacteria. Patient currently is denying any symptoms. ? urine culture, No growth #Moderate dementia Patient follows with Dr. Hunt outpatient. Currently not taking any medications. ? Continue outpatient follow up #Hyperlipidemia LDL 103 this admission ? Consider statin therapy DVT prophylaxis: Lovenox GI prophylaxis: Not indicated Diet: Cardiac Cronin: None Lines: Peripheral IV Antibiotics: Ceftriaxone [02/03/2025- ], doxycycline [02/03/2025- ] CODE STATUS: DNR Reason for hospitalization: Osteomyelitis Patient plan of care was discussed with the attending physician Dr. Brown and senior resident Dr. Alexa Busby DO PGY-1 Attending Provider Attestation/Addendum I have discussed and was present for the essential components of the history, physical examination, diagnosis, and treatment plan with the resident. I agree with the patient's care as documented by the resident and amended herein by me. Eriberto Brown DO. Although this document has been carefully reviewed, there may still be some phonetic and other typographical errors. These errors are purely grammatical due to imperfections in the software program and should not be construed in any way to compromise the substance of the patient's medical care during this visit.
[2025-02-05] MEDS: cefTRIAXone/D5w 2gm 2 GM/50 ML BAG IV (14:16)
[2025-02-06] VITALS (12 sets, daily range): BP systolic 108–163; BP diastolic 77–94; PULSE 63–90; RESP 17–24; TEMP 36.6–37.1; O2SAT 92–96; BMI 14.0
--- NOTE | 2025-02-06 00:37 | PC.NURSE ---
Midnight BP 163/77 and HR 83, Pt appears lying comfortably in bed with eyes closed, no signs of distress. Dr. Whitfield was made aware. No new orders at this time.
[2025-02-06 05:47] LABS: Phosphorous 2.4 mg/dL (2.4-5.1)
[2025-02-06] MEDS: ENOXAPARIN SOD INJ 40 MG/0.4 ML SYRINGE SC (09:01)
[2025-02-06] MEDS: DOXYCYCLINE 100 MG TABLET PO ×2 (09:01→20:15)
[2025-02-06] MEDS: LOSARTAN POTASSIUM 25 MG TABLET 100 MG PO (09:01)
[2025-02-06 09:16] LABS: Anion Gap 10 (7-16); BUN/Creatinine Ratio 17 Ratio (12-20); Blood Urea Nitrogen 15 mg/dL (9-23); Calcium 8.6 mg/dL (8.3-10.6); Carbon Dioxide 25.6 mMol/L (20.0-31.0); Chloride 112 mMol/L (98-107); Creatinine (Component) 0.9 mg/dL (0.6-1.3); Estimated Creatinine Clearance 61.8 mL/min (>60); Glucose 95 mg/dL (74-106); Osmolality,Calculated 295 (275-295); Potassium 3.9 mMol/L (3.4-5.1); Sodium 148 mMol/L (136-145); eGFR > 60 See Note
--- NOTE | 2025-02-06 12:42 | PC.SS ---
STEAMER OPERATOR confirmed with patient's daughter, Lala Gomez [phone]; discharge plan to transition patient to [facility] upon medical clearance.
--- NOTE | 2025-02-06 13:44 | ESPR_ITS ---
<Statement entered by Dipika Liu MD - 02/06/25 16:52> Patient was seen and examined by me personally. I have directly supervised and reviewed documentation by the team resident and agree with its findings with any exceptions or additional findings as below. Plan of care was discussed with the attending, Dr. Torres. Patient seen at bedside, pleasantly confused. Patient's bilateral lower extremities show markedly improved areas of erythema, now resolving, edema reduced with evidence of raisining of the skin. Still awaiting PICC line placement, per IR will likely be placed tomorrow due to case load. Patient BP still uncontrolled at 163/86. Added hydrochlorothiazide 25 mg qday which may additionally help with swelling. Consulted ID for antibiotic recommendations for osteomyelitis. Dipika Liu, PGY-3 Documentation for date of: 02/06/25 Subjective Subjective Interval history: No overnight events. Patient was examined at bedside; they appear A&Ox3 and in NAD. Vitals/labs today significant for BP 163/86, sodium 148. Physical exam was non-contributory. Today, patient's bilateral lower extremities seem to be much less erythematous and edematous, showing marked improvement from their appearance upon admission. ID has been consulted in regards to what antibiotic regimen is prudent to discharge patient with in the out-patient setting for treatment of the chronic osteomyelitis and soft tissue abscess of the right foot. Due to patient's blood pressure remaining uncontrolled today, she has also been started on HCTZ 25 mg PO QD. Otherwise, patient is just pending PICC line placement by IR (possibly tomorrow) before she is medically cleared for discharge. Exam Vital Signs Temp Pulse Resp BP Pulse Ox O2 Del Method 98.1 F 87 19 139/79 H 94 L Room Air 02/06/25 12:00 02/06/25 12:00 02/06/25 12:00 02/06/25 12:00 02/06/25 12:00 02/06/25 12:00 Narrative Exam GENERAL: NAD, AAOx1 HEENT: Moist mucosa. Eyes open, symmetrical, & clear CARDIO: Heart RRR, no obvious murmurs PULM: No noted coughing/dyspnea CTA B/L, no R/W/R GI: Abdomen soft, nondistended, no pain on palpation. BSx4 SKIN/MSK/EXT: +3 bilateral lower extremity edema, seeping, erythematous, right lower foot calcaneum black eschar, no pain on palpation. Pedal pulses present B/L NEURO: AAOx 1, no focal neuro deficits, able to move all 4 extremities Objective Labs 02/05/25 04:44 02/06/25 04:24 Labs: Laboratory Results - last 24 hr 02/06/25 04:24 Sodium 148 H Potassium 3.9 D Chloride 112 H Carbon Dioxide 25.6 Anion Gap 10 BUN 15 Creatinine 0.9 Estim Creat Clear Calc 61.8 eGFR > 60 BUN/Creatinine Ratio 17 Glucose 95 Calculated Osmolality 295 Calcium 8.6 Phosphorus 2.4 Quality Measures Quality Measures VTE prophylaxis Advance care planning discussed with:: patient Assessment & Plan Assessment Current Active Medications: Generic Name Dose Route Start Last Admin Trade Name Freq PRN Reason Stop Dose Admin Acetaminophen 650 mg 02/03/25 02:41 Acetaminophen 325 Mg Tablet PO 03/05/25 02:40 Q6H PRN Fever >100.4 Acetaminophen 650 mg 02/03/25 02:41 02/05/25 01:24 Acetaminophen 325 Mg Tablet PO 03/05/25 02:40 650 mg Q6H PRN Administration PAIN SCALE 1-3 (mild Doxycycline Hyclate 100 mg 02/03/25 21:00 02/06/25 09:01 Doxycycline 100 Mg Tablet PO 02/10/25 20:59 100 mg BID YEYO Administration Enoxaparin Sodium 40 mg 02/03/25 09:00 02/06/25 09:01 Enoxaparin Sod Inj 40 Mg/0.4 Ml Syringe SC 02/17/25 08:59 40 mg QDAY YEYO Administration Hydrochlorothiazide 25 mg 02/06/25 09:00 02/06/25 09:01 Hydrochlorothiazide 12.5 Mg Capsule PO 03/08/25 08:59 25 mg QDAY YEYO Administration Ceftriaxone Sodium/Dextrose 2 gm in 50 mls @ 100 mls/hr 02/03/25 16:33 02/05/25 14:16 Rocephin/D5w 2gm IV 02/10/25 16:32 100 mls/hr QDAY@1400 YEYO Administration Losartan Potassium 100 mg 02/05/25 09:00 02/06/25 09:01 Losartan Potassium 25 Mg Tablet PO 03/07/25 08:59 100 mg QDAY YEYO Administration Ondansetron HCl 4 mg 02/03/25 02:41 Ondansetron Inj 2 Mg/Ml Inj 2 Ml IVP 03/05/25 02:40 Q6H PRN NAUSEA OR VOMITING Protocol Quetiapine Fumarate 25 mg 02/03/25 20:19 02/05/25 03:00 Quetiapine Fumarate 25 Mg Tablet PO 03/05/25 20:59 25 mg HS PRN Administration AGITATION (MILD) Sennosides 1 tab 02/03/25 09:00 02/06/25 09:01 Senna Tablet PO 03/05/25 08:59 1 tab QDAY YEYO Administration Protocol Plan 74-year-old female with past medical history stated above who presented to the ED with bilateral lower extremity wounds concerning for cellulitis and right foot osteomyelitis. Patient will be admitted for IV antibiotics. #Bilateral lower extremity cellulitis #Chronic osteomyelitis of fourth metatarsal on right foot #Soft tissue abscess of right foot Patient noted to be having right foot pain, at the heel portion most likely where the osteo is. Patient has black eschar in RLE near the calcaneum Patient has left lower extremity swelling red erythematous edematous saw her primary care physician was given a course of antibiotics for 2 weeks, however continues with intermittent fevers and with no improvement in pain Foot XR of RLE early osteo of 4th metatarsal ? Vancomycin discontinued ? Cefepime discontinued ? Started IV ceftriaxone 2 q qday (6 weeks until 03/16/2025) ? Started PO doxycycline 100 mg BID (6 weeks until 03/16/2025) ? Blood cultures - No growth after 24hrs ? MRSA positive ? Surgery consulted, recommended to continue IV antibiotics, no debridement planned ? 02/05 foot MRI has resulted and showed small soft tissue abscess plantar to the calcaneus as well as early osteomyelitis of the plantar surface of the calcaneus ? Awaiting PICC line placement (consent already obtained on 02/05 from patient's daughter) for continued out-patient IV antibiotic treatment - ID consulted in regards to antibiotic regimen for out-patient treatment #Hypertension Patient has had uncontrolled hypertension this admission. Prescribed history shows a number of previous medications however patient apparently is only currently taking the metoprolol. ? Losartan 100 mg PO QD - HCTZ 25 mg PO QD #Lymphedema Patient has significant venous stasis disease and lymphedema bilaterally. Venous doppler negative this admission for DVT. ? Continue outpatient follow up with Vascular surgery in [place] #Positive urinalysis UA was barely positive with positive leukocyte esterase, 13 WBCs, and no bacteria. Patient currently is denying any symptoms. ? urine culture, No growth #Moderate dementia Patient follows with Dr. Hunt outpatient. Currently not taking any medications. ? Continue outpatient follow up #Hyperlipidemia LDL 103 this admission ? Consider statin therapy DVT prophylaxis: Lovenox GI prophylaxis: Not indicated Diet: Cardiac Cronin: None Lines: Peripheral IV Antibiotics: Ceftriaxone [02/03/2025- ], doxycycline [02/03/2025- ] CODE STATUS: DNR Reason for hospitalization: Osteomyelitis Patient plan of care was discussed with the attending physician Dr. Torres and senior resident Dr. Alexa Busby, DO PGY-1 Attending Provider Attestation/Addendum I have examined the patient, reviewed labs and imaging findings, discussed the case with the resident(s), and reviewed entered orders. I agree with the plan of care as outlined in this note. Dr. Melissa MD
[2025-02-06] MEDS: cefTRIAXone/D5w 2gm 2 GM/50 ML BAG IV (15:02)
[2025-02-06] MEDS: MIN OIL/PET,WHITE (Eucerin) CR 16 OZ BTL TOP (20:15)
[2025-02-07] VITALS (13 sets, daily range): BP systolic 138–169; BP diastolic 77–104; PULSE 62–88; RESP 15–20; TEMP 36.4–37.1; O2SAT 94–99; BMI 14.0; BMI 36.3
[2025-02-07] MEDS: ENOXAPARIN SOD INJ 40 MG/0.4 ML SYRINGE SC (08:30)
[2025-02-07] MEDS: LOSARTAN POTASSIUM 25 MG TABLET 100 MG PO (08:31)
[2025-02-07] MEDS: DOXYCYCLINE 100 MG TABLET PO (08:31)
--- NOTE | 2025-02-07 09:03 | XR_ITS ---
PROCEDURE: Peripherally Inserted Central Catheter (PICC) placement Procedural Personnel Attending physician(s): Kosta Bunch MD Pre-procedure diagnosis: Osteomyelitis Post-procedure diagnosis: Same Indication: Administration of intravenous medications Complications: No immediate complications. PROCEDURE SUMMARY: - PICC insertion with sonographic and fluoroscopic guidance (81499) - Additional procedure(s): None PROCEDURE DETAILS: Pre-procedure History and imaging of central venous access reviewed: Yes Consent: Informed consent for the procedure including risks, benefits and alternatives was obtained and time-out was performed prior to the procedure. Preparation: The site was prepared and draped using all elements of maximal sterile barrier technique including sterile gloves, sterile gown, cap, mask, large sterile sheet, sterile ultrasound probe cover, hand hygiene and cutaneous antisepsis with chlorhexidine or a comparable alternative. Anesthesia/sedation Local lidocaine Access Local anesthesia was administered. The vessel was sonographically evaluated and determined to be patent. Real time ultrasound was used to visualize needle entry into the vessel and a permanent image was not stored. Vein accessed: Right basilic Access technique: Micropuncture set with 21 gauge needle Venography Indication for venography: Not performed Vein catheterized: Not applicable Findings: Not applicable Catheter placement The catheter was trimmed to appropriate length and placed into the vein under fluoroscopic guidance via a peel-away sheath. Catheter tip location was fluoroscopically verified and a permanent image was stored. A sterile dressing was applied. Catheter placed: Bard 5 [place] PowerPICC Double Lumen Catheter intravascular length (cm): 38 Catheter flush: Heparin (100 units/mL) Catheter securement technique: Stat-Lock Contrast Contrast agent: None Contrast volume (mL): 0 Radiation Dose 0.4 minutes, 2.04 mGy Additional Details Estimated blood loss (mL): Less than 10 Standardized report: [id number] IMPRESSION: Insertion of right-sided dual-lumen power-injectable PICC, with tip in the expected location of the cavoatrial junction. PICC ready for immediate use. Attestation Signer name: Kosta Bunch MD I attest that I was present for the entire procedure. I agree with the report as written. No unintentionally retained devices were noted upon review of the images.
--- NOTE | 2025-02-07 10:52 | PC.SS ---
rounding note: Patient pending picc line today. Tentative d/c plan is [facility] with i.v. antibiotics for short term rehab.
--- NOTE | 2025-02-07 11:37 | PC.CM ---
Patient is opened to [facility] health. She will need new home health orders if she goes home.
--- NOTE | 2025-02-07 12:15 | PC.DIETICIAN ---
Dietitian recommendation: Add Vitamin C 500mg BID daily, zinc 220mg [id number], Multivitamin-Mineral daily to ensure adequate nutrient intake and promote wound healing. Thank you
--- NOTE | 2025-02-07 12:28 | PD.IDPROG ---
Subjective Subjective Interval history: early calcaneal osteo by mri . 4th met by xray. esr 50 and crp normal noted. no overt dm noted. Exam Vital Signs Temp Pulse Resp BP Pulse Ox O2 Del Method 98.2 F 86 18 138/79 H 96 Room Air 02/07/25 11:41 02/07/25 11:41 02/07/25 11:41 02/07/25 11:41 02/07/25 11:41 02/07/25 11:41 Narrative Exam rt calcaneal lesion noted. pulses seem diminished. has dementia . dementia w/u per others. follows with dr cornelius will check syphilis, tsh, hep c as precaution. Objective - Internal Medicine Labs 02/05/25 04:44 02/06/25 04:24 Assessment & Plan A&P Narrative osteo by imaging. no path or bx . not diabetic but some lymphedema noted. htn dementia, duaughter provides much of the hx. crp is normal, so if pt desires po meds that is ok, but if iv preferred, then rocephin 2 gm/day and po doxy 100 bid recommended thru 03/16/25 with weekly CBC, cmp, esr. if po chosen, suggest keflex 1000 tid and po doxy 100 bid both for 6 weeks from admit . same labs on po rx. no value to repeat imaging if not improved. but abx may not heal calcaneal osteo. venous circulation ok. no arterial check noted Time Spent With Patient Time: Total time spent is greater than 50% in coordination of care (as documented) at patient's floor/unit and/or counseling patient:
--- NOTE | 2025-02-07 12:53 | XR_ITS ---
Examination: Arterial duplex lower extremity study. Date and time of exam: February 07, 2025, 1708 hours INDICATIONS: Bilateral lower leg redness and nonhealing wound left heel 1 month Findings: Duplex sonographic imaging of the lower extremity arteries using B-mode/Gtz scale imaging and Doppler spectral analysis and color flow. Right common femoral artery demonstrates triphasic flow. Right superficial femoral artery demonstrates triphasic flow. Right popliteal artery demonstrates triphasic flow. Right posterior tibial artery demonstrated monophasic flow. Left common femoral artery demonstrates triphasic flow. Left superficial femoral artery demonstrates triphasic flow. Left popliteal artery demonstrates monophasic flow. Left posterior tibial artery demonstrated triphasic flow. Impression: Suspicious for peripheral obstructive arterial disease in the involving trifurcation arteries below the knees bilaterally, consider correlation with CTA abdominal aorta iliofemoral runoff post contrast follow-up
--- NOTE | 2025-02-07 13:06 | ESDS_ITS ---
Planned Discharge Date 02/07/25 DS: Providers Provider Date of admission: 02/03/25 02:40 Primary care physician: Physician No Primary/Family Admitting Provider: Emeka Flores MD Attending Provider on Admission: Yon Torres MD Consults: 02/03/25 02:50 Consult to General Surgery Stat Comment: Consulting Provider: Renard Lam 02/03/25 08:00 Referral Wound Care Urgent Comment: 02/03/25 13:48 Referral Physical Therapy Routine Comment: Physician Instructions: 02/06/25 11:18 Consult to Infectious Diseases Routine Comment: antibiotics for chronic osteomyelitis Consulting Provider: Mikhail Diaz 02/06/25 15:37 Referral Nutritional Services Routine Comment: Wounds Attending Provider on DC: Yon Torres MD Discharging Provider: Alessio Busby MD DS: Diagnosis Problem List Completed Was Problem List Reviewed/Reconciled?: Yes Hospital Course Hospital Course Hospital course: Summary: 74-year-old female with past medical history stated above who presented to the ED with bilateral lower extremity wounds concerning for cellulitis and right foot osteomyelitis. Patient will be admitted for IV antibiotics. Hospital: During patient's hospital course, she was treated with Rocephin IV and doxycycline PO (with some initial administration of vancomycin IV and cefepime IV) for her bilateral lower extremity cellulitis and right foot osteomyelitis. General Surgery (Dr. Sanchez) was consulted and recommended only medical management and that debridement was not necessary. She was also treated with losartan PO and HCTZ PO for her hypertension. By 02/07, patient had PICC line placed for outpatient IV antibiotics and was discharged to SNF. Patient is safe to discharge. Further discharge instructions below. Discharge Recommendations: Continue medication for osteomyelitis: -IV ceftriaxone 2 g once daily for 6 weeks total (until 03/16/2025) -PO doxycycline 100 mg twice daily for 6 weeks total Wound care: -Bilateral lower legs- wash with warm soap and water to gently remove crustings and dry skin than apply Eucerin cream at least once a day and as needed for dry skin -Right plantar foot/heel: swab with betadine BID Hospital Diagnoses: #Bilateral lower extremity cellulitis #Chronic osteomyelitis of fourth metatarsal on right foot #Soft tissue abscess of right foot #Hypertension #Lymphedema #Positive urinalysis #Moderate dementia #Hyperlipidemia Patient's care plan was discussed with my attending, Dr. Torres, and senior resident, Dr. Liu. Alessio Busby, DO Internal Medicine, PGY-1 Time Spent with Patient Time attestation: Total time spent providing and/or coordinating discharge services: Time spent: Greater than 30 minutes Exam Vital Signs Temp Pulse Resp BP Pulse Ox O2 Del Method 98.2 F 86 18 138/79 H 96 Room Air 02/07/25 11:41 02/07/25 11:41 02/07/25 11:41 02/07/25 11:41 02/07/25 11:41 02/07/25 11:41 Narrative Exam GENERAL: NAD, AAOx1 HEENT: Moist mucosa. Eyes open, symmetrical, & clear CARDIO: Heart RRR, no obvious murmurs PULM: No noted coughing/dyspnea CTA B/L, no R/W/R GI: Abdomen soft, nondistended, no pain on palpation. BSx4 SKIN/MSK/EXT: +3 bilateral lower extremity edema, seeping, erythematous, right lower foot calcaneum black eschar, no pain on palpation. Pedal pulses present B/L NEURO: AAOx 1, no focal neuro deficits, able to move all 4 extremities Discharge Plan Plan Patient Disposition: Xfer Skilled Nsg Fac (SNF) Care Plan Goals: Continue medication for osteomyelitis: -IV ceftriaxone 2 g once daily for 6 weeks total (until 03/16/2025) -PO doxycycline 100 mg twice daily for 6 weeks total Wound care: -Bilateral lower legs- wash with warm soap and water to gently remove crustings and dry skin than apply Eucerin cream at least once a day and as needed for dry skin -Right plantar foot/heel: swab with betadine BID Prescriptions/Referrals Prescriptions/Med Rec: No Action gabapentin 300 mg capsule 300 mg PO .Q24 Patient Comments: TAKE 1 CAPSULE BY MOUTH EVERY DAY metoprolol tartrate 25 mg tablet 25 mg PO Q12H Patient Comments: TAKE 1 TABLET BY MOUTH TWICE A DAY WITH FOOD Referrals: No Primary/Family,Physician [Primary Care Provider] Patient/Caregiver Discharge Instructions Print Language: Luxembourgish Stand Alone Forms: Varsha Award Info., Patient Portal Info Letter Discharge Order Discharge Orders: Discharge (Routine); Ordered 02/07/25 Ordered By: Manish Cameron Quality Discharge Quality Measures VTE prophylaxis Attestestation MD Attestation I have examined the patient, reviewed labs and imaging findings, discussed the case with the resident(s), and reviewed entered orders. I agree with the plan of care as outlined in this note. Time Spent: [address] Melissa MD
--- NOTE | 2025-02-07 14:09 | ESCONSULT_ITS ---
RE: ABBY MEJIA : 1950 DATE OF CONSULTATION: 02/07/2025 REFERRING PHYSICIAN: hospitalist team REASON FOR CONSULTATION: Osteomyelitis of the right foot in a non-diabetic with lymphedema. HISTORY OF PRESENT ILLNESS: Patient is not diabetic. She has lymphedema that is improved with hydration and observation. She has a right calcaneal lesion on exam and MRI raises concern for osteomyelitis. ESr is 50. CRP is normal. She was not on any oral antibiotics prior. I am going to check hepatitis C, TSH, and syphilis screen tomorrow. And I will check on her next week if she still remains, but she goes to a alf which her daughter suggests she may by Wednesday. I have no objection. DT: 12:58:07 TT: 14:08:00 Ref: [id number] - TID: [id number] MTDD
[2025-02-07] MEDS: LIDOCAINE INJ PF 1% 30 ML VIAL EPID (14:25)
[2025-02-07] MEDS: HEPARIN SOD LOCK SYR 100 UNIT/ML 500 UNIT STFIELD (14:25)
[2025-02-07] MEDS: cefTRIAXone/D5w 2gm 2 GM/50 ML BAG IV (14:56)
[2025-02-07] MEDS: ASCORBIC ACID 250 MG TABLET 500 MG PO (14:56)
[2025-02-07] MEDS: MULTIVITAMINS TABLET 1 TAB PO (14:56)
[2025-02-07] MEDS: ZINC SULFATE 220 MG CAPSULE PO (14:56)
--- NOTE | 2025-02-07 15:35 | PC.NURSE ---
L upper arm 163/86 R upper arm 140/77 L calf 168/78 R calf 232/120
--- NOTE | 2025-02-07 15:59 | PC.SS ---
Patient will d/c to [facility]. Patient had picc line placed. SS contacted facility and they can accept patient late today. [facility] transport can brass pickler patient by 7p.m.
== END 2025-02-07 18:56 | disposition skilled nursing facility (03) | DRG 638 ==
LOC: SERX 02-03 02:02 → SERHOLD 02-03 02:58 → S3SX 02-03 04:21
PROVIDERS: Nurse Practitioner Family; Student in an Organized Health Care Education/Training Program; Admitting Provider Student in an Organized Health Care Education/Training Program; Emergency Provider Emergency Medicine; Visit Provider Student in an Organized Health Care Education/Training Program
DX: E11.69 Type 2 diabetes mellitus with other specified complication (principal); L02.611 Cutaneous abscess of right foot; L03.115 Cellulitis of right lower limb; L03.116 Cellulitis of left lower limb; N30.00 Acute cystitis without hematuria; M86.171 Other acute osteomyelitis, right ankle and foot; N18.9 Chronic kidney disease, unspecified; E78.5 Hyperlipidemia, unspecified; F03.B0 Unspecified dementia, moderate, without behavioral disturbance, psychotic disturbance, mood disturbance, and anxiety; I87.8 Other specified disorders of veins; I89.0 Lymphedema, not elsewhere classified; E11.22 Type 2 diabetes mellitus with diabetic chronic kidney disease; I12.9 Hypertensive chronic kidney disease with stage 1 through stage 4 chronic kidney disease, or unspecified chronic kidney disease; Z66 Do not resuscitate; Z79.899 Other long term (current) drug therapy
CPT/HCPCS: 36415; 71045; 73630; 73718; 80048; 80053; 81001; 83036; 83605; 83735; 83880; 84100; 84145; 84439; 84443; 84484; 85025; 85610; 85652; 85730; 86140; 87040; 87081; 87086; 93005; 93225; 93922; 93970; 96365; 96366; 96375; 97162; 99283; A4649; C1751; C1894; J0360; J0692; J0696; J1642; J1650; J2060; J2543; J3373; J3490; J7030; J7050; A9270

== ENCOUNTER 2025-02-16 16:41 | Emergency (ER) | payer OTHER, SELFPAY ==
--- NOTE | 2025-02-16 16:54 | EDNOTE_ITS ---
ED General RME/HPI General Stated complaint: MANAGER ACTION MALFUNCTION Time Seen by Provider: 02/16/25 16:51 Arrival date/time: 02/16/25 16:41 CC: Needs PICC HPI patient presents to the ER via EMS from [facility] where the patient inadvertently had a PICC line in the right arm fall out . The patient is awake alert oriented nontoxic-appearing not in any acute distress. Patient was transported with report of stable vital signs from staff at [facility] requesting a PICC line. We have none available for PICC line at this time we will start with a peripheral IV and discharge the patient back. Related Data Home Medications ?Medication ?Instructions ?Recorded ?Confirmed gabapentin 300 mg capsule 300 mg PO .Q24 02/03/2501/14 metoprolol tartrate 25 mg tablet 25 mg PO Q12H 5 02/03/25 Allergies Allergy/AdvReac Type Severity Reaction Status Date / Time No Known Allergies Allergy Unverified 02/02/25 15:52 Review of Systems Review of Systems Narrative Review of Systems: GEN: No fever, no chills, no weight loss EYES: No discharge, no visual changes, no pain HEENT: No ear pain, no congestion, no sore throat PULM: No shortness of breath, no cough, no congestion CV: No chest pain, no dyspnea on exertion, no palpitations GI: No nausea, no vomiting, no diarrhea, no pain, no constipation : No frequency, no urgency, no dysuria MUSC/SKEL: No joint pain, no back pain SKIN: No rash PSYCH: No hallucinations, no depression HEME/LYMPH: No easy bleeding or bruising tendencies NEURO: No weakness, no headache Past Medical History Past Medical History NEUROLOGIC: Positive Dementia CARDIAC: Positive Hypertension; Negative Congestive Heart Failure RESPIRATORY: Negative Chronic Obstructive Pulmonary Disease (COPD) GENITOURINARY: Negative Renal Disease MUSCULOSKELETAL: Positive Arthritis ENDOCRINE: Negative Diabetes Mellitus Type 1 or Diabetes Mellitus Type 2 OTHER HISTORY: Positive Blood Transfusions Social History SMOKING STATUS: Never smoker ED Exam Narrative Physical exam: [General: Obese not in cot no acute distress Head normocephalic HEENT: Within acceptable limits Neck is supple nontender Chest equal chest rise nontender to palpation Respiratory: Clear to auscultation no wheezes crackles or rubs CV: Rate rhythm is regular no murmurs rubs or clicks Abdomen is distended secondary to body habitus soft nontender no masses positive bowel sounds all 4 quadrants Back: No CVA tenderness no spinous process tenderness from cervical spine thoracic and lumbar spine Skin: Puncture site of the PICC catheter to the right upper inner arm with no active bleeding no surrounding erythema or edema. Otherwise skin is intact no petechiae rash induration ulceration or crepitus Extremities: Moving all extremity against resistance cap refill less than 2 seconds neurosensory intact Neuro: Awake alert oriented x2, person and place, Glascow coma 15 no focal deficits] Course Quality Measures none Orders Category Date Time Status Saline [Insert IV] NOW Care 02/16/25 16:52 Active Discharge Plan Plan Patient Disposition: HOME (Self Care) Patient condition on transfer: Stable Prescriptions/Referrals Prescriptions/Med Rec: No Action gabapentin 300 mg capsule 300 mg PO .Q24 Patient Comments: TAKE 1 CAPSULE BY MOUTH EVERY DAY metoprolol tartrate 25 mg tablet 25 mg PO Q12H Patient Comments: TAKE 1 TABLET BY MOUTH TWICE A DAY WITH FOOD Problem List Clinical Impression: Encounter for intravenous line placement Patient/Caregiver Discharge Instructions Education Materials: Discharge Instructions ... Additional Instructions: Patient needs to be set up for outpatient appointment for new PICC line placemen t for antibiotic management. Print Language: Romansh Stand Alone Forms: Varsha Award Info., Patient Portal Info Letter PA/MINE [employer] MECH[employer]IC Supervising Physician MANJIT/ERIC Supervising Physician: Faisal Hollis ENP
[2025-02-16 16:56] VITALS: PULSE 78; RESP 18; O2SAT 96
[2025-02-16 17:18] VITALS: BP 153/82; PULSE 94; RESP 18; TEMP 36.4; O2SAT 97
[2025-02-16 18:21] VITALS: BP 158/99; PULSE 88; RESP 19; TEMP 36.8; O2SAT 96
== END 2025-02-16 19:45 | disposition home or self-care (01) ==
LOC: SERX 17:45
PROVIDERS: Emergency Provider Family Medicine
DX: T82.524A Displacement of infusion catheter, initial encounter (principal); Y84.8 Other medical procedures as the cause of abnormal reaction of the patient, or of later complication, without mention of misadventure at the time of the procedure
CPT/HCPCS: 99282